=== PATIENT | male | born 2000 | race Caucasian/White ===

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

== ENCOUNTER → 2022-02-21 15:25 | Outpatient (BNVA) | payer MEDICAID, SELFPAY | PROVIDERS: PCP Nurse Practitioner Primary Care; Referring Provider Nurse Practitioner Primary Care; Visit Provider Surgery | DX: D17.23 Benign lipomatous neoplasm of skin and subcutaneous tissue of right leg (principal); N50.89 Other specified disorders of the male genital organs | CPT/HCPCS: 99202 ==

== ENCOUNTER 2022-04-27 17:34 | Emergency (ER) | payer MEDICAID, SELFPAY ==
[2022-04-27 17:57] VITALS: BP 114/76; PULSE 100; RESP 16; TEMP 36.9; O2SAT 98; BMI 22.7
--- OUTSIDE RECORDS SUMMARY | 2022-04-27 19:37 | XMS_ITS | Continuity of Care Document ---
:2000 Author Organization [address] [place] [address]- Care Team Providers Name Role Phone Rosa Huddleston DO Primary Care Physician Encounter [facility] Date(s): 03/27/22 - 04/26/[address] [place], [place] [address] Attending Physician: Lilia Clemons Admitting Physician: AdmtrLilia Referring Physician: Admtr, Ar8 Allergies, Adverse Reactions, Alerts No Known Allergies Medications acetaminophen 325 mg oral capsule 1 capsule = 325 mg, By Mouth, Every 4 hours, PRN as needed for pain, # 20 capsule, 0 Refills, Maintenance, 03/20/22 14:41:00 EST, Capsule, Partial fill upon patient request if the prescription is for aschedule II opioid drug. Start Date: 03/20/22 Status: Orderedalbuterol CFC free 90 mcg/inh inhalation aerosol 180 mcg, 2, puffs, Inhalation, Every 4 hours, PRN, Refills 0, Maintenance, 03/13/22 10:21:00 EST, Inhaler Start Date: 03/13/22 Status: Orderedbisacodyl 10 mg rectal suppository 1 supp = 10 mg, Rectally, 2 times a day, PRN Constipation, 0 Refills, Maintenance, 03/13/22 10:21:00EST, Suppository, Partial fill upon patient request if the prescription is for a schedule II opioid drug. Start Date: 03/13/22 Status: Ordereddocusate sodium 100 mg oral capsule 100 mg, 1, capsule, By Mouth, 2 times a day, PRN, # 14 capsule, Refills 0, Tot. Refills 0, Maintenance, Constipation, 03/13/22 11:52:00 EST, Route to Pharmacy Electronically, [facility], Partial fill upon patient request if the prescript... Start Date: 03/13/22 Stop Date: 03/20/22 Status: Orderedgabapentin 300 mg oral capsule 300 mg, By Mouth, 3 times a day, # 90 capsule, Refills 0, Tot. Refills 0, Maintenance, 03/13/22 13:00:00 EST, Route to Pharmacy Electronically, [facility], Partial fill upon patient request if the prescription is for a schedule II opioid... Start Date: 03/13/22 Stop Date: 04/12/22 Status: Orderedibuprofen 400 mg oral tablet 400 mg, 1, tablet, By Mouth, Every 6 hours, PRN, # 20 tablet, Refills 0, Tot. Refills 0, Maintenance, for pain, 02/01/17 18:39:24, Print Requisition Start Date: 02/01/17 Status: OrderedMelatonin Daily at bedtime, 0 Refills, Maintenance, 03/20/22 14:41:00 EST, Partial fill upon patient request if the prescription is for a schedule II opioid drug. Start Date: 03/20/22 Status: OrderedMilk of Magnesia Liquid 30 mL, By Mouth, 2 times a day, PRN Constipation, 0 Refills, Maintenance, 03/13/22 10:22:00 EST, Suspension, Partial fill upon patient request if the prescription is for a schedule II opioid drug. Start Date: 03/13/22 Status: OrderedMiraLax Powder 1 pack/packet = 17 Gm, By Mouth, Daily, 0 Refills, Maintenance, 03/13/22 10:22:00 EST, Powder, Partial fill upon patient request if the prescription is for a schedule II opioid drug. Start Date: 03/13/22 Status: OrderedSenna 8.6 mg oral tablet 8.6 mg, 1, tablet, By Mouth, Daily, Refills 0, Maintenance, 03/13/22 10:22:00 EST, Tablet, Partial fill upon patient request if the prescription is for a schedule II opioid drug. Start Date: 03/13/22 Status: Ordered Social History Social History Type Response Smoking Status Never smoker; Tobacco user i n household: No entered on: 06/30/17 Sex Patient Care team information Care Team PersonnelName: Winsome Diaz Position: [facility] RN Member Role: Primary Care Nurse Name: Natalie Clarke RN Position: S RN Member Role: Primary Care Nurse Name: Hai Romo RN Position: S RN Member Role: Primary Care Nurse Name: Milady Roger RN Position: S RN Member Role: Primary Care Nurse Name: Belen Alves Position: S RN Member Role: Primary Care Nurse Name: Rosa Huddleston DO Position: [facility] Outreach Member Role: PCP Address: Address: [address] [place] [address] Name: Leigh Ellison RN Position: [facility] RN Member Role: Primary Care Nurse Care Team Related PersonsName: ELLY SCHNEIDER Address: home [address] [place] [address]
--- OUTSIDE RECORDS SUMMARY | 2022-04-27 19:37 | XMS_ITS | Continuity of Care Document ---
:2000 Author Organization [facility] Address [address] [place] [address] Drive [address] [place] [address]- Care Team Providers Name Role Phone Rosa Huddleston DO Primary Care Physician [place] [facility] [place] - 03/27/[address] [place] [address]- Attending Physician: Clemencia Abdul NP Referring Physician: Not on Staff, Referring MD Allergies, Adverse Reactions, Alerts No Known Allergies [...] 03/13/22 11:52:00 EST, Route to Pharmacy Electronically, [facility], Partial fill upon patient request if the prescript... Start Date: 03/13/22 Stop Date: 03/20/22 Status: Orderedgabapentin 300 mg oral capsule 300 mg, By Mouth, 3 times a day, # 90 capsule, Refills 0, Tot. Refills 0, Maintenance, 03/13/22 13:00:00 EST, Route to Pharmacy Electronically, [facility], Partial fill upon patient request if [...] opioid drug. Start Date: 03/13/22 Status: Ordered Vital Signs Most recent to oldest [Reference Range]: 1 Height 165 cm (03/20/22 2:38 PM) Pulse Rate [55-90 bpm] 93 bpm *H* (03/20/22 2:38 PM) Blood Pressure [90-138/55-84 mm Hg] 126/77 mm Hg (03/20/22 2:38 PM) Temperature [96.8-100.4 DegF] 97.9 DegF (03/20/22 2:38 PM) Blood pressure sites Arm, left (03/20/22 2:38 PM) Temperature Route Temporal (03/20/22 2:38 PM) Height Percentile 5.03 % 1 (03/20/22 2:38 PM) Height ZScore -1.64 2 (03/20/22 2:38 PM) 1Result Comment: ^~:!Percentile Source -CDC/CEI7Rakrny Comment: ^~:!ZScore Source -CDC/WHO Social History Social History Type Response Smoking Status Never smoker; Tobacco user i n household: No entered on: 06/30/17 Sex Patient Care team information Care Team PersonnelName: Winsome Diaz Position: S RN Member Role: Primary Care Nurse Name: Natalie Clarke RN Position: S RN Member Role: Primary Care Nurse Name: Hai Romo RN Position: S RN Member Role: Primary Care Nurse Name: Milady Roger RN Position: S RN Member Role: Primary Care Nurse Name: Belen Alves Position: S RN Member Role: Primary Care Nurse Name: Rosa Huddleston DO Position: S Outreach Member Role: PCP Address: Address: [address] [place] [address]- Name: Leigh Ellison RN Position: S RN Member Role: Primary Care Nurse Care Team Related PersonsName: ELLY SCHNEIDER Address: home [address] [place] [address]
--- OUTSIDE RECORDS SUMMARY | 2022-04-27 19:37 | XMS_ITS | Continuity of Care Document ---
:2000 Author Organization [address] [place] [address]- Care Team Providers Name Role Phone Rosa Huddleston DO Primary Care Physician Encounter [facility] Date(s): 03/20/22 - 04/19/[address] [place], [place] [address] Attending Physician: Lilia Clemons Admitting Physician: Lilia Clemons Referring Physician: Admtr, Ar8 Allergies, Adverse Reactions, [...] 03/13/22 11:52:00 EST, Route to Pharmacy Electronically, [facility], Partial fill upon patient request if the prescript... Start Date: 03/13/22 Stop Date: 03/20/22 Status: Orderedgabapentin 300 mg oral capsule 300 mg, By Mouth, 3 times a day, # 90 capsule, Refills 0, Tot. Refills 0, Maintenance, 03/13/22 13:00:00 EST, Route to Pharmacy Electronically, [facility], Partial fill upon patient [...] Member Role: Primary Care Nurse Name: Natalie Clarek RN Position: S RN Member Role: Primary Care Nurse Name: Hai Romo RN Position: S RN Member Role: Primary Care Nurse Name: Milady Roger RN Position: S RN Member Role: Primary Care Nurse Name: Belen Alves Position: S RN Member Role: Primary Care Nurse Name: Rosa Huddleston DO Position: [facility] Outreach Member Role: PCP Address: Address: [address] [place] [address] Name: Leigh Ellison RN Position: S RN Member Role: Primary Care Nurse Care Team Related PersonsName: ELLY SCHNEIDER Address: home [address] [place] [address]
--- OUTSIDE RECORDS SUMMARY | 2022-04-27 19:38 | XMS_ITS | Continuity of Care Document ---
:2000 Author Organization [facility] Address [address] [place] [address] Drive [address] [place] [address]- Care Team Providers Name Role Phone Rosa Huddleston DO Primary Care Physician Encounter [facility] Date(s): 03/27/22 - 04/03/[address] [place] [address]- Attending Physician: Clemencia Abdul NP Allergies, Adverse Reactions, Alerts No Known Allergies [...] 03/13/22 11:52:00 EST, Route to Pharmacy Electronically, [facility], Partial fill upon patient request if the prescript... Start Date: 03/13/22 Stop Date: 03/20/22 Status: Orderedgabapentin 300 mg oral capsule 300 mg, By Mouth, 3 times a day, # 90 capsule, Refills 0, Tot. Refills 0, Maintenance, 03/13/22 13:00:00 EST, Route to Pharmacy Electronically, [facility], Partial fill upon patient [...] information Care Team PersonnelName: Winsome Diaz Position: [facility] RN Member Role: Primary Care Nurse Name: [...] S Outreach Member Role: PCP Address: Address: [address] [place] [address]- Name: Leigh Ellison RN Position: S RN Member Role: Primary Care Nurse Care Team Related PersonsName: ELLY SCHNEIDER Address: home [address] [place] [address]
--- OUTSIDE RECORDS SUMMARY | 2022-04-27 19:38 | XMS_ITS | Continuity of Care Document ---
:2000 Author Organization [facility] Address [address] [place] [address]- Care Team Providers Name Role Phone Rosa Huddleston DO Primary Care Physician Encounter [facility] Date(s): 03/13/22 - 04/12/[address] [address]- Attending Physician: Not on Staff, Attending MD Admitting Physician: Not on Staff, Admitting MD Referring Physician: Not on Staff, Referring MD [...] 03/13/22 11:52:00 EST, Route to Pharmacy Electronically, [facility], Partial fill upon patient request if the prescript... Start Date: 03/13/22 Stop Date: 03/20/22 Status: Orderedgabapentin 300 mg oral capsule 300 mg, By Mouth, 3 times a day, # 90 capsule, Refills 0, Tot. Refills 0, Maintenance, 03/13/22 13:00:00 EST, Route to Pharmacy Electronically, [facility], Partial fill upon patient [...] Member Role: Primary Care Nurse Name: Natalie Clakre RN Position: S RN Member Role: Primary Care Nurse Name: Hai Romo RN Position: S RN Member Role: Primary Care Nurse Name: Milady Roger RN Position: S RN Member Role: Primary Care Nurse Name: Belen Alves Position: S RN Member Role: Primary Care Nurse Name: Rosa Huddleston DO Position: [facility] Outreach Member Role: PCP Address: Address: [address] [place] [address]- Name: Leigh Ellison RN Position: [facility] RN Member Role: Primary Care Nurse Care Team Related PersonsName: RASHAAD RAMOSELLY SALAZAR Address: [address] [place] [address]
--- OUTSIDE RECORDS SUMMARY | 2022-04-27 19:38 | XMS_ITS | Continuity of Care Document ---
:2002 Author Organization [facility] Address [address] [place] [address]- Care Team Providers Name Role Phone Rosa Huddleston DO Primary Care Physician Encounter 03/14/22 - 04/18/22 [facility] [address] [place] [address]- Discharge Disposition: [facility] Allergies, Adverse Reactions, Alerts No Known Allergies [...] 03/13/22 11:52:00 EST, Route to Pharmacy Electronically, [facility], Partial fill upon patient request if the prescript... Start Date: 03/13/22 Stop Date: 03/20/22 Status: Orderedgabapentin 300 mg oral capsule 300 mg, By Mouth, 3 times a day, # 90 capsule, Refills 0, Tot. Refills 0, Maintenance, 03/13/22 13:00:00 EST, Route to Pharmacy Electronically, [facility], Partial fill upon patient request [...] Care Nurse Name: Natalie Clarke RN Position: [facility] RN Member Role: Primary Care Nurse Name: Hai Romo RN Position: S RN Member Role: Primary Care Nurse Name: Milady Roger RN Position: S RN Member Role: Primary Care Nurse Name: Belen Alves Position: S RN Member Role: Primary Care Nurse Name: Rosa Huddleston DO Position: S Outreach Member Role: PCP Address: Address: [address] [place] [id number]- Name: Leigh Ellison RN Position: S RN Member Role: Primary Care Nurse Care Team Related PersonsName: ELLY SCHNEIDER Address: home [address] [place] [address]
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
--- OUTSIDE RECORDS SUMMARY | 2022-04-27 19:38 | XMS_ITS | Continuity of Care Document ---
:2000 Author Organization [facility] Address [address] [place] [address] Drive [address] [place] [address]- Care Team Providers Name Role Phone Rosa Huddleston DO Primary Care Physician Encounter [facility] Date(s): 03/20/22 - 04/26/[address] [place] [address]- Attending Physician: Clemencia Abdul NP Allergies, Adverse [...] 03/13/22 11:52:00 EST, Route to Pharmacy Electronically, [facility], Partial fill upon patient request if the prescript... Start Date: 03/13/22 Stop Date: 03/20/22 Status: Orderedgabapentin 300 mg oral capsule 300 mg, By Mouth, 3 times a day, # 90 capsule, Refills 0, Tot. Refills 0, Maintenance, 03/13/22 13:00:00 EST, Route to Pharmacy Electronically, [facility], Partial fill upon [...] S Outreach Member Role: PCP Address: Address: [address] [place] [id number]- Name: Leigh Ellison RN Position: S RN Member Role: Primary Care Nurse Care Team Related PersonsName: ELLY SCHNEIDER Address: home [address] [place] [address]
--- NOTE | 2022-04-27 20:34 | ED.SKABFB ---
HPI - Skin/Abscess/Foreign Bdy General Chief complaint: Skin/Abscess/Foreign Body Stated complaint: mass right lower leg Time Seen by Provider: 04/27/22 19:36 Source: patient Mode of arrival: ambulatory Limitations: no limitations History of Present Illness HPI narrative: This is a 21-year-old male no significant medical history presenting to the emergency department with complaints of a mass behind his right knee, patient tells me it has been present for years however has been increasing in size and now there is overlying redness, swelling and warmth. He tells me it is very uncomfortable. He denies any discharge from the area. Denies numbness and tingling. To note patient is scheduled to see Dr. Rodriguez general surgery on May 08 for excision of lipoma Related Data Previous Rx's Medication Instructions Recorded cephalexin 500 mg tablet 500 mg PO Q6H 10 days #40 tabs 04/27/22 doxycycline hyclate 100 mg capsule 100 mg PO BID 10 days #20 caps 04/27/22 Allergies Allergy/AdvReac Type Severity Reaction Status Date / Time No Known Allergies Allergy Verified 02/21/22 15:30 Review of Systems Review of Systems: Constitutional : No Weight loss, No Fever, No Chills, No Fatigue, No Malaise ENT/Mouth : No sore throat, No Rhinorrhea Eyes: No Eye Pain, No Swelling, No Redness Cardiovascular : No Chest Pain, No SOB, No Dyspnea on Exertion, No Orthopnea, No Edema, No Palpitations Respiratory : No Cough, No Sputum, No Wheezing Gastrointestinal : No Nausea, No Vomiting, No Diarrhea, No Constipation, No abdominal Pain, No Hematochezia, No Melena Genitourinary : No Dysuria, No Urinary Frequency, No Hematuria, Musculoskeletal : No joint pain, No Myalgias, No Joint Swelling Skin : No Skin Lesions, No rash, + lump behind right knee Neuro : No Weakness, No Numbness, No Dizziness, No Headache Psych : No Anxiety/Panic, No Depression All other systems reviewed and are negative Yes all other systems are reviewed and are negative [facility] Past Medical History Attestation statement: The following information was validated with the patient. Source: old records reviewed and nursing notes reviewed Medical History Lipoma of right lower extremity Scrotal mass Family History Family History Father Fibromyalgia Diabetes Mother Asthma Fibromyalgia Social History Social History Alcohol intake: current Alcohol intake frequency: holidays/special occasions only Patient Tobacco Use Status: Never used Tobacco Advance Directives: No Advance Directives Information Provided: No Physical Exam Vital Signs: Vital Signs: Last Vital Signs Temp 98.4 F 04/27/22 17:57 Pulse 100 04/27/22 17:57 Resp 16 04/27/22 17:57 BP 114/76 04/27/22 17:57 Pulse Ox 98 04/27/22 17:57 O2 Del Method 04/27/22 17:57 BMI result Body Mass Index 22.7 Vital signs stable Appearance: Alert.? Oriented X3.? No acute distress.? Head: Normocephalic, atraumatic, no step-offs or deformities Eyes: Pupils equal, round and reactive to light.? CVS: Normal heart rate and rhythm.? Pulses normal.? Respiratory: No respiratory distress.? Breath sounds normal.? Abdomen: Soft and nontender.? Skin: Skin warm and dry.? Normal skin color.? Normal skin turgor.?+ Soft mass, about 3 cm, well-defined, mobile on the medial aspect, right lower leg near the popliteal area consistent with a lipoma Extremities: No lower extremity edema.? No calf ttp. 5/5 strength to bilateral upper and lower extremities Neuro: Oriented X 3.? No motor deficit.? No sensory deficit. CN 2-12 intact Course Reevaluation(s) Reevaluation #1: Will discharge patient home with doxycycline and Keflex, will have him follow-up with General surgery as scheduled for May 08. Educated patient on diagnosis and treatment plan, answered all question, patient verbalizes understanding. At this time patient will be discharged home, advised to return with new or worsening symptoms. Educated on worrisome signs and symptoms and when to return. At this time I feel comfortable discharge home. Time: 20:41 Medical Decision Making Medical Decision Making [facility] Narrative: 2038 This is a 21-year-old male presenting with mass behind right knee with overlying redness, swelling and warmth times a few days. Physical exam with Soft mass, about 3 cm, well-defined, mobile on the medial aspect, right lower leg near the popliteal area consistent with a lipoma with overlying cellulitis Physical examination most consistent with lipoma with overlying cellulitis unlikely abscess, sepsis, necrotizing infection Plan at this time is to discharge patient home Differential Diagnosis Differential Diagnoses: The differential diagnosis associated with the presentation includes Physical examination most consistent with lipoma with overlying cellulitis unlikely abscess, sepsis, necrotizing infection Admission/Observation Consideration of admission/observation: Escalation of care including admission/observation considered Not indicated Core Measures AMI core measures followed: Yes Measure exclusions: not indicated Critical Care Time Critical Care Time Critical Care Time: No Discharge Plan Discharge Clinical Impression: Lipoma of right lower extremity, Cellulitis Patient Disposition: Home, Self-Care Instructions: Cellulitis (ED), Lipoma (ED) Additional Instructions: Take your medications as prescribed. If you were prescribed antibiotics today, it is important that you take your medication to their entirety, do not skip any doses, do not finish them early. Follow-up with your primary care provider this week. Return to the emergency department with new or worsening symptoms. Such as fevers, chills, chest pain, shortness of breath, nausea, vomiting, dizziness, headache, vision changes, lethargy In case of emergency call 911 Prescriptions: New doxycycline hyclate 100 mg capsule 100 mg PO BID 10 Days Qty: 20 0RF cephalexin 500 mg tablet 500 mg PO Q6H 10 Days Qty: 40 0RF Referrals: Daly Juan, [employer] LEARNING [employer] DEVELOPMENT [Primary Care Provider] - 2 days Stand Alone Forms: Work/School Release
== END 2022-04-27 20:53 | disposition home or self-care (01) ==
PROVIDERS: Emergency Provider Internal Medicine; PCP Nurse Practitioner Primary Care
DX: D17.23 Benign lipomatous neoplasm of skin and subcutaneous tissue of right leg (principal); L03.115 Cellulitis of right lower limb; M79.661 Pain in right lower leg
CPT/HCPCS: 99283

== ENCOUNTER → 2022-04-29 13:30 | Outpatient (BNVA) | payer MEDICAID, SELFPAY | PROVIDERS: PCP Nurse Practitioner Primary Care; Visit Provider Surgery | DX: L02.415 Cutaneous abscess of right lower limb (principal) | CPT/HCPCS: 10060; 11404; 99212 ==

== ENCOUNTER → 2022-06-06 15:12 | Outpatient (BNVA) | payer MEDICAID, SELFPAY | PROVIDERS: PCP Nurse Practitioner Primary Care; Visit Provider Surgery | DX: Z13.89 Encounter for screening for other disorder (principal) ==

== ENCOUNTER 2022-12-28 20:55 | Emergency (ER) | payer MEDICAID, SELFPAY ==
[2022-12-28 20:58] VITALS: BP 120/76; PULSE 109; RESP 18; TEMP 37.1; O2SAT 98; BMI 23.5
--- NOTE | 2022-12-28 20:58 | ED_ITS ---
HPI - General Adult General Chief complaint: Upper Respiratory Symptoms Stated complaint: Fever & cough Time Seen by Provider: 12/28/22 22:17 Source: patient Mode of arrival: ambulatory Limitations: no limitations History of Present Illness HPI narrative: Patient comes to the emergency room complaining of sore throat for 2 days. Patient states that he has been coughing, dry cough. Subjective fever, had 2- COVID tests at home. Related Data Home Medications Medication Instructions Recorded Confirmed acetaminophen 500 mg tablet 1,000 mg PO Q8H PRN 04/29/22 albuterol sulfate 90 mcg/actuation 2 puff inhalation Q4H PRN wheezing 04/29/22 aerosol inhaler (Ventolin HFA) docusate sodium 100 mg capsule 100 mg PO BID PRN constipation 04/29/22 gabapentin 300 mg capsule 300 mg PO TID 04/29/22 lidocaine 5 % topical patch 1 patch topical DAILY 04/29/22 (Lidoderm) melatonin 10 mg capsule mg PO BEDTIME PRN insomnia 04/29/22 Previous Rx's Medication Instructions Recorded ibuprofen 600 mg tablet 600 mg PO TID PRN fever or pain 12/28/22 #20 tabs Allergies Allergy/AdvReac Type Severity Reaction Status Date / Time No Known Allergies Allergy Verified 06/06/22 15:20 Review of Systems Review of Systems: Constitutional : No Weight loss, No Fever, No Chills, No Night Sweats, No Fatigue, No Malaise ENT/Mouth : No Hearing loss, No Ear Pain, No Nasal Congestion, No Sinus Pain, No Hoarseness, Complaining of sore throat, No Rhinorrhea, No Swallowing Difficulty Eyes: No Eye Pain, No Swelling, No Redness, No Foreign Body, No Discharge, No Vision Changes Cardiovascular : No Chest Pain, No SOB, No Dyspnea on Exertion, No Orthopnea, No Edema, No Palpitations Respiratory : No Cough, No Sputum, No Wheezing, No Smoke Exposure, No Dyspnea Gastrointestinal : No Nausea, No Vomiting, No Diarrhea, No Constipation, No abdominal Pain, No Hematochezia, No Melena Genitourinary : no irregular bleeding, No Dysuria, No Urinary Frequency, No Hematuria, No Urinary Incontinence, No Urgency, No Flank Pain, No Urinary Flow Changes, No Hesitancy Musculoskeletal : No joint pain, No Myalgias, No Joint Swelling Skin : No Skin Lesions, No rash Neuro : No Weakness, No Numbness, No Paresthesias, No Loss of Consciousness, No Dizziness, No Headache Psych : No Anxiety/Panic, No Depression, No SI/HI/AH/VH, No Social Issues, Heme/Lymph: No Bruising, No Bleeding,No Lymphadenopathy Endocrine : No Polyuria, No Polydipsia, No Temperature Intolerance [facility] Past Medical History Medical History Abscess of leg, right Scrotal mass Lipoma of right lower extremity Family History Family History Father Fibromyalgia Diabetes Mother Asthma Fibromyalgia Social History Social History Alcohol intake: current Alcohol intake frequency: holidays/special occasions only Patient Tobacco Use Status: Never used Tobacco Smoked in Last 30 Days: No Advance Directives: No Advance Directives Information Provided: No Physical Exam ED Vital Signs: Vital Signs - 24 hr 12/28/22 20:58 12/28/22 21:46 Temperature 98.8 F Pulse Rate 109 H Respiratory Rate 18 Blood Pressure 120/76 Pulse Oximetry 98 98 Oxygen Delivery Method Room Air Room Air BMI result Body Mass Index 23.5 Const Other: Appearance: Alert. Oriented X3. No acute distress. Eyes: Pupils equal, round and reactive to light. ENT: mild erythema, no exudates, no abscesses Neck: Normal inspection. Neck supple. No lymph nodes noted. No crepitus CVS: Normal heart rate and rhythm. Pulses normal. Normal S1 and S2 Respiratory: No respiratory distress. Breath sounds normal. No Wheezing. No rales Abdomen: Soft and nontender. No rigidity. No distention. Skin: Skin warm and dry. Normal skin color. Normal skin turgor. Extremities: No lower extremity edema. No Lacerations. No Rash Neuro: Oriented X 3. No motor deficit. No sensory deficit. Moving all extremities. No slurred speech. CN 2 through 12 grossly intact Psych: calm, cooperative, normal affect Course Course Course Narrative: This is an RME: Additional HPI, ROS, PE not included below will be deferred to primary provider. This is a 67-lctc-tdf-male presenting to the emergency department with complaints of fevers, cough, sore throat and congestion x 2 days. Has had negative at home COVID tests. VSS. Plan: Viral swabs, strep test ordered. Medical Decision Making Medical Decision Making [facility] Narrative: - my interpretation of labs, patient tested negative for strep and COVID - patient given p.o. Decadron and viscous lidocaine - antibiotics initially considered , but not indicated at this time, likely viral pharyngitis Differential Diagnosis Differential Diagnoses: The differential diagnosis associated with the presentation includes ( strep throat, COVID, viral pharyngitis) Lab Data [facility] Lab Attestation statement: I reviewed the patient's lab results. Labs: Lab Results 12/28/22 Range/Units 21:31 Influenza Type A (PCR) NEGATIVE (Negative) Influenza Type B (PCR) NEGATIVE (Negative) RSV RNA Qual (PCR) NEGATIVE (Negative) SARS-CoV-2 RNA (RT-PCR) NEGATIVE (Negative) S. pyogenes GrpA EDU Negative (Negative) Discharge Plan Discharge Clinical Impression: Acute viral pharyngitis Patient Disposition: Home, Self-Care Instructions: Pharyngitis (ED) Additional Instructions: Please follow-up with your primary care physician tomorrow. If you have any worsening or new symptoms, please return to the emergency room or call 911 Prescriptions: New ibuprofen 600 mg tablet 600 mg PO TID PRN (Reason: fever or pain) Qty: 20 0RF No Action gabapentin 300 mg capsule 300 mg PO TID melatonin 10 mg capsule PO BEDTIME PRN (Reason: insomnia) lidocaine [Lidoderm] 5 % adhesive patch,medicated 1 patch topical DAILY acetaminophen 500 mg tablet 1,000 mg PO Q8H PRN docusate sodium 100 mg capsule 100 mg PO BID PRN (Reason: constipation) albuterol sulfate [Ventolin HFA] 90 mcg/actuation HFA aerosol inhaler 2 puff inhalation Q4H PRN (Reason: wheezing)
[2022-12-28 21:46] VITALS: O2SAT 98
[2022-12-28 21:52] LABS: IDNOW Serial# 08D9AD1C
[2022-12-28 21:53] LABS: Strep A Nucleic Acid Negative (Negative)
[2022-12-28 22:17] LABS: Influenza A PCR NEGATIVE (Negative); Influenza B PCR NEGATIVE (Negative); Resp Syncy Virus RNA Qual PCR NEGATIVE (Negative); SARS COV2 PCR INHOUSE NEGATIVE (Negative)
[2022-12-28] MEDS: Ibuprofen 600 MG TABLET PO (22:45)
[2022-12-28] MEDS: Lidocaine HCl Viscous 2 % 15 ML SOLUTION MUCOUS MEM (22:46)
[2022-12-28] MEDS: dexAMETHasone 4 MG TABLET PO (22:46)
== END 2022-12-28 23:07 | disposition home or self-care (01) ==
PROVIDERS: Physician Assistant Medical; Emergency Provider Emergency Medicine; PCP Nurse Practitioner Primary Care
DX: J02.9 Acute pharyngitis, unspecified (principal); R50.9 Fever, unspecified; Z20.822 Contact with and (suspected) exposure to COVID-19; Z20.828 Contact with and (suspected) exposure to other viral communicable diseases
CPT/HCPCS: 0241U; 87651; 99283; 99284; J8540

== ENCOUNTER 2023-06-06 18:56 | Emergency (ER) | payer MEDICAID, SELFPAY ==
[2023-06-06 19:14] VITALS: BP 125/78; PULSE 95; RESP 14; TEMP 36.9; O2SAT 99; BMI 21.8
--- NOTE | 2023-06-06 19:16 | ECG_ITS ---
Test Reason : DIZZINESS Blood Pressure : / mmHG Vent. Rate : 113 BPM Atrial Rate : 113 BPM P-R Int : 146 ms QRS Dur : 090 ms QT Int : 316 ms P-R-T Axes : 082 102 031 degrees QTc Int : 433 ms Sinus tachycardia Right atrial enlargement Rightward axis Abnormal ECG When compared to the previous EKG of 05 apr 2017, Right atrial enlargement Referred By: Srikanth Chung Electronically Signed By:MARIANELA SILVA
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
[2023-06-06 20:06] LABS: MANUAL DIFF FLAG NO
[2023-06-06 20:07] LABS: Basophils Percent Auto 0.2 % (0-2); Hematocrit 51.6 % (42.0-52.0); Hemoglobin 17.9 g/dl (14.0-18.0); Imm Gran Abs Auto 0.06 X10*3/uL (0.00-0.03); Imm Gran Pct Auto 0.5 % (0.0-0.4); Lymphocytes Absolute Auto 0.8 X10*3/uL (1.2-4.9); Lymphocytes Percent Auto 6.1 % (20-40); Mean Corpuscular HGB Conc 34.7 g/dl (31.0-36.0); Mean Corpuscular Hemoglobin 29.4 pg (27.0-33.0); Mean Corpuscular Volume 84.7 fL (80.0-98.0); Mean Platelet Volume 9.3 fL (9.4-12.4); Monocytes Absolute Auto 0.7 X10*3/uL (0.1-1.2); Monocytes Percent Auto 5.5 % (2-11); Neutrophils Absolute Auto 11.3 x10*3/uL (2.0-8.3); Neutrophils Percent Auto 87.7 % (45-73); Platelet Count 298 X10*3/uL (160-400); Red Blood Count 6.09 X10*6/uL (4.60-5.80); Red Cell Distribution Width 13.2 % (11.0-16.0); White Blood Count 12.9 X10*3/uL (4.8-10.8)
[2023-06-06 20:20] LABS: Alanine Aminotransferase 38 U/L (0-40); Albumin Level 5.1 g/dL (3.5-5.0); Alkaline Phosphatase 107 U/L (39-117); Anion Gap 15 (12-20); Aspartate Amino Transferase 20 U/L (5-37); Bilirubin Total 0.8 mg/dL (0.0-1.0); Blood Urea Nitrogen 13 mg/dL (9-16); Calcium 10.6 mg/dL (8.4-10.2); Carbon Dioxide 24 mmol/L (22-29); Chloride 104 mmol/L (96-108); Creatinine Clr Calc Pharmacy 117.3; Estimated Glomerular Filt Rate > 60; Glucose Random 101 mg/dL (60-115); Lipase 15 U/L (8-78); Potassium 3.8 mmol/L (3.3-5.1); Sodium 139 mmol/L (135-145); Total Protein 8.6 g/dL (6.5-8.0)
[2023-06-06 20:43] LABS: Influenza A PCR NEGATIVE (Negative); Influenza B PCR NEGATIVE (Negative); Resp Syncy Virus RNA Qual PCR NEGATIVE (Negative); SARS COV2 PCR INHOUSE NEGATIVE (Negative)
[2023-06-06 23:36] VITALS: BP 121/72; PULSE 97; RESP 18; TEMP 36.7; O2SAT 100
[2023-06-06] MEDS: 0.9 % Sodium Chloride 1,000 ML 999 ML IV (23:52)
[2023-06-06] MEDS: ondansetron HCL 4 MG/2 ML VIAL IVPUSH (23:53)
[2023-06-06] MEDS: Ketorolac Tromethamine 30 MG/ML VIAL IVPUSH (23:53)
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
[2023-06-07 01:36] VITALS: BP 122/70; PULSE 107; RESP 20; O2SAT 99
[2023-06-07 04:06] VITALS: BP 119/66; PULSE 78; RESP 20; O2SAT 96
[2023-06-07] MEDS: Magnesium Hydrox/Alum Hydrox 30 ML ORAL.SUSP PO (04:16)
--- NOTE | 2023-06-07 04:19 | PC.NURSE ---
pt reporting burning sensation in upper abdomen, pt medicated per jun.
== END 2023-06-07 04:20 | disposition home or self-care (01) ==
PROVIDERS: Physician Assistant; Emergency Provider Internal Medicine; PCP Nurse Practitioner Primary Care
DX: G43.909 Migraine, unspecified, not intractable, without status migrainosus (principal); R11.2 Nausea with vomiting, unspecified; Z87.820 Personal history of traumatic brain injury; Z11.52 Encounter for screening for COVID-19; Z20.828 Contact with and (suspected) exposure to other viral communicable diseases
CPT/HCPCS: 0241U; 80053; 83690; 85025; 93005; 96361; 96374; 96375; 99284; 99285; J1885; J2405

== ENCOUNTER → 2023-06-06 19:16 | Outpatient (BNV) | payer MEDICAID, SELFPAY | PROVIDERS: Emergency Provider Internal Medicine; PCP Nurse Practitioner Primary Care; Visit Provider Internal Medicine | DX: R00.0 Tachycardia, unspecified (principal); R94.31 Abnormal electrocardiogram [ECG] [EKG] | CPT/HCPCS: 93010 ==

== ENCOUNTER 2023-12-25 20:50 | Emergency (ER) | payer MEDICAID, SELFPAY ==
[2023-12-25 20:55] VITALS: BP 121/72; BP 128/72; PULSE 108; PULSE 117; RESP 20; TEMP 36.8; O2SAT 97; O2SAT 98; BMI 19.5
[2023-12-25 20:56] VITALS: BP 121/72; PULSE 112; RESP 18; TEMP 36.8; O2SAT 97
--- NOTE | 2023-12-25 21:23 | PC.NURSE ---
pt biba from home, a&ox4,respirations even and unlabored. pt reporting onset of a PTSD episode starting this morning causing increased anxiety x12 hours. pt rpeorts he has hx of ptsd but it has never got this bad.pt reports he has been having trouble sleeping, but when he sleeps he has nightmares and believes these are his triggers. pt denies si/hi. denies chest pain, sob, n/v/d.
--- NOTE | 2023-12-26 00:35 | ED.ANXIETY ---
HPI - Anxiety General Chief Complaint: Anxiety Stated Complaint: PTSD episode, 01/14 head pain hx tbi Time Seen by Provider: 12/25/23 23:12 Source: patient Mode of arrival: ambulatory Limitations: no limitations History of Present Illness ED Provider: eugenia PALAFOX narrative: Patient with history of PTSD , TBI and anxiety comes here for increased anxiety earlier today on lorazepam 1 mg twice daily feeling much better at this time no SI or HI Related Data Home Medications ?Medication ?Instructions ?Recorded ?Confirmed acetaminophen 500 mg tablet 1,000 mg PO Q8H PRN 04/29/22 albuterol sulfate 90 mcg/actuation 2 puff inhalation Q4H PRN wheezing 04/29/22 aerosol inhaler (Ventolin HFA) docusate sodium 100 mg capsule 100 mg PO BID PRN constipation 04/29/22 gabapentin 300 mg capsule 300 mg PO TID 04/29/22 lidocaine 5 % topical patch 1 patch topical DAILY 04/29/22 (Lidoderm) melatonin 10 mg capsule mg PO BEDTIME PRN insomnia 04/29/22 Previous Rx's ?Medication ?Instructions ?Recorded ibuprofen 600 mg tablet 600 mg PO TID PRN fever or pain 12/28/22 #20 tabs unoujmhxhb-vardbyiwzynbf-uxrefwpn 1 tab PO Q6H PRN haeadace #20 tabs 06/07/23 50 mg-325 mg-40 mg tablet Allergies Allergy/AdvReac Type Severity Reaction Status Date / Time No Known Allergies Allergy Verified 12/25/23 20:57 Review of Systems Review of Systems: Yes all other systems are reviewed and are negative PMFSH Past Medical History Medical History Abscess of leg, right Scrotal mass Lipoma of right lower extremity Family History Family History Father Fibromyalgia Diabetes Mother Asthma Fibromyalgia Social History Social History Alcohol intake: never Patient Tobacco Use Status: Never used Tobacco Smoked in Last 30 Days: No Use of substances other than those prescribed or required for medical reasons: No Substance Use Type: Marijuana Advance Directives: Yes Advance Directives Information Provided: No Advance Directives on File: No Do you have a plan to hurt others: No Plan Physical Exam Vital Signs: Vital Signs: Last Vital Signs Temp 98.3 F 12/25/23 20:56 Pulse 112 H 12/25/23 20:56 Resp 18 12/25/23 20:56 BP 121/72 12/25/23 20:56 Pulse Ox 97 12/25/23 20:56 O2 Del Method Room Air 12/25/23 20:56 BMI result Body Mass Index 19.5 Appearance: Alert. Oriented X3. No acute distress. Eyes: PERRLA, No Nystagmus ENT: Pharynx normal. Oral Mucosa moist Neck: Normal inspection. Neck supple. CVS: Normal heart rate and rhythm. Pulses normal. Respiratory: No respiratory distress. Equal air entry bilateral, no wheezing/rales/rhonchi Abdomen: Soft and nontender. Bowel sounds are present, no mass palpable, no CVA tenderness Skin: Skin warm and dry. Normal skin color. Normal skin turgor. Extremities: No lower extremity edema. No calf tenderness Neuro: Oriented X 3. No motor deficit. No sensory deficit.No cerebellar signs , cranial nerves II-XII intact Medical Decision Making Medical Decision Making MDM Narrative: Patient's anxiety/PTSD/TBI on lorazepam calm and sober at advised to continue his medication Discharge Plan Discharge Clinical Impression: Acute anxiety Patient Disposition: Home, Self-Care Instructions: Anxiety (ED) Additional Instructions: Take your lorazepam twice daily as prescribed by the psychiatrist and follow up with them Prescriptions: No Action ibuprofen 600 mg tablet 600 mg PO TID PRN (Reason: fever or pain) Qty: 20 0RF omgvydzxka-owuikxhahbnwo-gxdp 50-325-40 mg tablet 1 tab PO Q6H PRN (Reason: haeadace) Qty: 20 0RF gabapentin 300 mg capsule 300 mg PO TID melatonin 10 mg capsule PO BEDTIME PRN (Reason: insomnia) lidocaine [Lidoderm] 5 % adhesive patch,medicated 1 patch topical DAILY acetaminophen 500 mg tablet 1,000 mg PO Q8H PRN docusate sodium 100 mg capsule 100 mg PO BID PRN (Reason: constipation) albuterol sulfate [Ventolin HFA] 90 mcg/actuation HFA aerosol inhaler 2 puff inhalation Q4H PRN (Reason: wheezing) Print Language: Mozamb[place]
[2023-12-26 00:49] VITALS: BP 94/54; PULSE 99; RESP 14; TEMP 36.7; O2SAT 98
[2023-12-26 00:50] VITALS: BP 94/54; PULSE 99; RESP 14; TEMP 36.7; O2SAT 98
== END 2023-12-26 00:51 | disposition home or self-care (01) ==
PROVIDERS: Emergency Provider Internal Medicine; PCP Nurse Practitioner Primary Care
DX: F41.9 Anxiety disorder, unspecified (principal); Z79.899 Other long term (current) drug therapy
CPT/HCPCS: 99283; 99284

== ENCOUNTER 2024-01-15 14:24 | Outpatient (REF) | payer MEDICAID, SELFPAY ==
[2024-01-15 18:26] LABS: CT PCR NOT DETECTED (Not Detect.); NG PCR NOT DETECTED (Not Detect.)
[2024-01-16 08:32] LABS: HIV AB/AG Nonreactive (Nonreactive); HIV Num 1 0.05 S/CO (0.00-0.99)
[2024-01-19 10:59] LABS: RPR Rapid Plasma Reagin NON-REACTIVE (NON-REACTIVE)
== END 2024-01-15 14:25 | disposition home or self-care (01) ==
LOC: HO.HHCL 14:24
PROVIDERS: Visit Provider Nurse Practitioner Primary Care
DX: Z11.3 Encounter for screening for infections with a predominantly sexual mode of transmission (principal)
CPT/HCPCS: 36415; 86592; 87389; 87491; 87591

== ENCOUNTER 2024-01-26 23:18 | Emergency (ER) | payer MEDICAID, SELFPAY ==
[2024-01-26 23:29] VITALS: BP 107/53; PULSE 75; RESP 18; TEMP 36.8; O2SAT 99
[2024-01-26 23:34] VITALS: BP 127/82; PULSE 88; O2SAT 100; BMI 29.0
[2024-01-26 23:53] LABS: Basophils Percent Auto 0.4 % (0-2); Hematocrit 49.2 % (42.0-52.0); Hemoglobin 17.3 g/dl (14.0-18.0); Imm Gran Abs Auto 0.02 X10*3/uL (0.00-0.03); Imm Gran Pct Auto 0.2 % (0.0-0.4); Lymphocytes Percent Auto 10.9 % (20-40); MANUAL DIFF FLAG NO; Mean Corpuscular HGB Conc 35.2 g/dl (31.0-36.0); Mean Corpuscular Hemoglobin 29.4 pg (27.0-33.0); Mean Corpuscular Volume 83.7 fL (80.0-98.0); Mean Platelet Volume 9.2 fL (9.4-12.4); Monocytes Absolute Auto 0.9 X10*3/uL (0.1-1.2); Monocytes Percent Auto 9.3 % (2-11); Neutrophils Absolute Auto 7.4 x10*3/uL (2.0-8.3); Neutrophils Percent Auto 79.2 % (45-73); Platelet Count 242 X10*3/uL (160-400); Red Blood Count 5.88 X10*6/uL (4.60-5.80); Red Cell Distribution Width 13.2 % (11.0-16.0); White Blood Count 9.4 X10*3/uL (4.8-10.8)
[2024-01-27 00:09] LABS: Albumin Level 4.7 g/dL (3.5-5.0); Alkaline Phosphatase 106 U/L (39-117); Anion Gap 14 (12-20); Aspartate Amino Transferase 30 U/L (5-37); Bilirubin Total 0.6 mg/dL (0.0-1.0); Blood Urea Nitrogen 10 mg/dL (9-16); Carbon Dioxide 20 mmol/L (22-29); Chloride 112 mmol/L (96-108); Creatinine Clr Calc Pharmacy 139.1; Estimated Glomerular Filt Rate > 60; Glucose Random 89 mg/dL (60-115); Lipase 13 U/L (8-78); Potassium 3.5 mmol/L (3.3-5.1); Sodium 142 mmol/L (135-145); Total Protein 7.7 g/dL (6.5-8.0)
[2024-01-27 00:23] LABS: Alanine Aminotransferase 55 U/L (0-40)
[2024-01-27 01:47] VITALS: BP 102/50; PULSE 68; RESP 14; TEMP 36.8; O2SAT 98
[2024-01-27] MEDS: ondansetron HCL 4 MG/2 ML VIAL IVPUSH (02:01)
[2024-01-27] MEDS: 0.9 % Sodium Chloride 1,000 ML 999 ML IV (04:29)
[2024-01-27] MEDS: LORazepam 2 MG/ML VIAL 1 MG IVPUSH (04:29)
[2024-01-27] MEDS: Famotidine/PF 20 MG/2 ML VIAL IVPUSH (04:30)
[2024-01-27 05:03] VITALS: BP 99/60; PULSE 87; RESP 17; TEMP 37.4; O2SAT 97
[2024-01-27 06:23] VITALS: BP 99/60; PULSE 83; RESP 14
--- NOTE | 2024-01-27 06:56 | ED.NAVMDI ---
HPI - Nausea/Vomiting/Diarrhea General Chief complaint: Nausea/Vomiting/Diarrhea Stated complaint: GI BLEED Time Seen by Provider: 01/27/24 04:18 Source: patient Mode of arrival: ambulatory Limitations: no limitations History of Present Illness ED Provider: eugenia PALAFOX Narrative: Patient's with history of anxiety comes here for nausea vomiting for last 24 hours with multiple episodes of vomiting followed by dark color vomitus no history of ulcer no melena Related Data Home Medications ?Medication ?Instructions ?Recorded ?Confirmed acetaminophen 500 mg tablet 1,000 mg PO Q8H PRN 04/29/22 albuterol sulfate 90 mcg/actuation 2 puff inhalation Q4H PRN wheezing 04/29/22 aerosol inhaler (Ventolin HFA) docusate sodium 100 mg capsule 100 mg PO BID PRN constipation 04/29/22 gabapentin 300 mg capsule 300 mg PO TID 04/29/22 lidocaine 5 % topical patch 1 patch topical DAILY 04/29/22 (Lidoderm) melatonin 10 mg capsule mg PO BEDTIME PRN insomnia 04/29/22 Previous Rx's ?Medication ?Instructions ?Recorded ibuprofen 600 mg tablet 600 mg PO TID PRN fever or pain 12/28/22 #20 tabs tzjceqqxdh-puqifmpukndol-kwopdlzn 1 tab PO Q6H PRN haeadace #20 tabs 06/07/23 50 mg-325 mg-40 mg tablet omeprazole 40 mg capsule,delayed 40 mg PO DAILY #30 caps 01/27/24 release ondansetron 4 mg disintegrating 4 mg PO Q6-8H PRN nausea and 01/27/24 tablet vomiting #10 tabs Allergies Allergy/AdvReac Type Severity Reaction Status Date / Time No Known Allergies Allergy Verified 01/26/24 23:38 Review of Systems Review of Systems: Yes all other systems are reviewed and are negative PMFSH Past Medical History Medical History Abscess of leg, right Scrotal mass Lipoma of right lower extremity Family History Family History Father Fibromyalgia Diabetes Mother Asthma Fibromyalgia Social History Social History Alcohol intake: never Patient Tobacco Use Status: Never used Tobacco Smoked in Last 30 Days: No Use of substances other than those prescribed or required for medical reasons: No Substance Use Type: Marijuana Substance Use Frequency: Chronic Longstanding Advance Directives: No Advance Directives Information Provided: No Do you have a plan to hurt others: No Plan Physical Exam Vital Signs: Vital Signs: Last Vital Signs Temp 99.3 F 01/27/24 05:03 Pulse 83 01/27/24 06:23 Resp 14 01/27/24 06:23 BP 99/60 01/27/24 06:23 Pulse Ox 97 01/27/24 05:03 O2 Del Method Room Air 01/27/24 05:03 BMI result Body Mass Index 29.0 Appearance: Alert. Oriented X3. No acute distress. Eyes: PERRLA, No Nystagmus ENT: Pharynx normal. Oral Mucosa moist Neck: Normal inspection. Neck supple. CVS: Normal heart rate and rhythm. Pulses normal. Respiratory: No respiratory distress. Equal air entry bilateral, no wheezing/rales/rhonchi Abdomen: Soft and mild epigastric tenderness Bowel sounds are present, no mass palpable, no CVA tenderness Skin: Skin warm and dry. Normal skin color. Normal skin turgor. Extremities: No lower extremity edema. No calf tenderness Neuro: Oriented X 3. No motor deficit. No sensory deficit.No cerebellar signs , cranial nerves II-XII intact Medications Administered Discontinued Medications Generic Name Dose Route Start Last Admin Trade Name Freq PRN Reason Stop Dose Admin Famotidine 20 mg 01/27/24 04:20 01/27/24 04:30 Famotidine/Pf 20 Mg/2 Ml Vial IVPUSH 01/27/24 04:21 20 mg ONCE ONE Administration Sodium Chloride 1,000 mls @ 999 mls/hr 01/27/24 04:20 01/27/24 04:29 Ns IV 01/27/24 05:20 999 mls/hr .Q1H1M ONE Administration Lorazepam 1 mg 01/27/24 04:20 01/27/24 04:29 Lorazepam 2 Mg/Ml Vial IVPUSH 01/27/24 04:21 1 mg ONCE ONE Administration Ondansetron HCl 4 mg 01/27/24 01:55 01/27/24 02:01 Ondansetron Hcl 4 Mg/2 Ml Vial IVPUSH 01/27/24 01:56 4 mg ONCE ONE Administration Medical Decision Making Medical Decision Making [facility] Narrative: Patient has acute gastritis/anxiety improved after Ativan and Pepcid, H&H stable no active vomiting in the ER will discharge patient home Differential Diagnosis Differential Diagnoses: The differential diagnosis associated with the presentation includes Anxiety/gastritis Lab Data [facility] Lab Attestation statement: I reviewed the patient's lab results. 01/26/24 23:49 01/26/24 23:49 Labs: Lab Results 01/26/24 Range/Units 23:49 WBC 9.4 (4.8-10.8) X10*3/uL RBC 5.88 H (4.60-5.80) X10*6/uL Hgb 17.3 (14.0-18.0) g/dl Hct 49.2 (42.0-52.0) % MCV 83.7 (80.0-98.0) fL MCH 29.4 (27.0-33.0) pg MCHC 35.2 (31.0-36.0) g/dl RDW 13.2 (11.0-16.0) % Plt Count 242 (160-400) X10*3/uL MPV 9.2 L (9.4-12.4) fL Immature Gran % (Auto) 0.2 (0.0-0.4) % Neut % (Auto) 79.2 H (45-73) % Lymph % (Auto) 10.9 L (20-40) % Tw[place]gs % (Auto) 9.3 (2-11) % Eos % (Auto) 0.0 (0-4) % Baso % (Auto) 0.4 (0-2) % Lymph # (Auto) 1.0 L (1.2-4.9) X10*3/uL [place] # (Auto) 0.9 (0.1-1.2) X10*3/uL Eos # (Auto) 0.0 (0.0-0.4) X10*3/uL Baso # (Auto) 0.0 (0.0-0.2) X10*3/uL Abs Immat Gran (auto) 0.02 (0.00-0.03) X10*3/uL Absolute Neuts (auto) 7.4 (2.0-8.3) x10*3/uL Absolute Nucleated RBC 0.000 (0.0-0.012) X10*3/uL Nucleated RBC % (auto) 0.0 (0.0-0.2) /100WBC Sodium 142 (135-145) mmol/L Potassium 3.5 (3.3-5.1) mmol/L Chloride 112 H (96-108) mmol/L Carbon Dioxide 20 L (22-29) mmol/L Anion Gap 14 (12-20) BUN 10 (9-16) mg/dL Creatinine 0.87 (0.5-1.4) mg/dL Estim Creat Clear Calc 139.1 Estimated GFR > 60 Random Glucose 89 (60-115) mg/dL Calcium 10.0 (8.4-10.2) mg/dL Total Bilirubin 0.6 (0.0-1.0) mg/dL AST 30 (5-37) U/L ALT 55 H (0-40) U/L Alkaline Phosphatase 106 (39-117) U/L Total Protein 7.7 (6.5-8.0) g/dL Albumin 4.7 (3.5-5.0) g/dL Lipase 13 (8-78) U/L Discharge Plan Discharge Clinical Impression: Acute gastritis Patient Disposition: Home, Self-Care Instructions: Gastritis (ED) Additional Instructions: Drink plenty of fluids Take medication for nausea and anxiety Prescriptions: New ondansetron 4 mg tablet,disintegrating 4 mg PO Q6-8H PRN (Reason: nausea and vomiting) Qty: 10 0RF omeprazole 40 mg capsule,delayed release(DR/EC) 40 mg PO DAILY Qty: 30 0RF No Action ibuprofen 600 mg tablet 600 mg PO TID PRN (Reason: fever or pain) Qty: 20 0RF ayefqvrajv-bxkvwyfzuobwp-jeqg 50-325-40 mg tablet 1 tab PO Q6H PRN (Reason: haeadace) Qty: 20 0RF gabapentin 300 mg capsule 300 mg PO TID melatonin 10 mg capsule PO BEDTIME PRN (Reason: insomnia) lidocaine [Lidoderm] 5 % adhesive patch,medicated 1 patch topical DAILY acetaminophen 500 mg tablet 1,000 mg PO Q8H PRN docusate sodium 100 mg capsule 100 mg PO BID PRN (Reason: constipation) albuterol sulfate [Ventolin HFA] 90 mcg/actuation HFA aerosol inhaler 2 puff inhalation Q4H PRN (Reason: wheezing) Print Language: Sammarinese
[2024-01-27 07:19] VITALS: BP 99/60; PULSE 83; RESP 14; TEMP 37.4; O2SAT 97
== END 2024-01-27 07:19 | disposition home or self-care (01) ==
PROVIDERS: Emergency Provider Internal Medicine; PCP Nurse Practitioner Primary Care
DX: K29.70 Gastritis, unspecified, without bleeding (principal); R11.2 Nausea with vomiting, unspecified
CPT/HCPCS: 36415; 80053; 83690; 85025; 96361; 96374; 96375; 99284; J2060; J2405

== ENCOUNTER 2024-03-06 19:03 | Outpatient (REF) | payer MEDICAID, SELFPAY ==
--- NOTE | ~2024-03-06 | MR_ITS ---
EXAMINATION: MR BRAIN WITHOUT CONTRAST CLINICAL INFORMATION: History of traumatic brain injury. New onset headaches. COMPARISON: CT head from 10/28/2018. TECHNIQUE: MRI of the brain was obtained using routine sequences without contrast. FINDINGS: No focal restricted diffusion is demonstrated to suggest acute or subacute cerebral ischemia. No evidence of acute hemorrhagic products on heme-sensitive imaging. Chronic regions of encephalomalacia of the anterior-inferior aspects of the bilateral frontal lobes, the lateral aspect of the right frontal lobe, and anterior aspect of the right temporal lobe with chronic hemosiderin staining. Small foci of susceptibility artifact within the left temporal lobe, right cerebellar hemisphere, and midbrain consistent with petechial microhemorrhage. Few nonspecific scattered small foci of T2 FLAIR hyperintensities in the bilateral frontoparietal lobes. The ventricles are normal in morphology and size. No abnormal mass effect. No midline shift. Normal appearance of the pituitary gland. Normal positioning of the cerebellar tonsils. Normal arterial and venous vascular flow voids are present. Normal, homogeneous marrow signal. Mild mucosal thickening of the paranasal sinuses. Mild rightward nasal septal deviation. No signal abnormalities within the mastoids. MR/MR head/brain wo con IMPRESSION: 1. No acute intracranial abnormalities. 2. Chronic regions of encephalomalacia of the bilateral frontal and right temporal lobes. 3. Mild nonspecific white matter changes. Electronically signed by: J Carlos Patel DO 03/07/2024 11:25 PM EST
== END 2024-03-06 19:04 | disposition home or self-care (01) ==
LOC: HO.MRI 19:03
PROVIDERS: PCP Nurse Practitioner Primary Care; Visit Provider Nurse Practitioner Primary Care
DX: R51.9 Headache, unspecified (principal); S06.9X9S Unspecified intracranial injury with loss of consciousness of unspecified duration, sequela
CPT/HCPCS: 70551

== ENCOUNTER → 2024-06-21 13:59 | Outpatient (REF) | payer MEDICAID, SELFPAY ==
--- NOTE | 2024-06-21 14:04 | CA_ITS ---
Transthoracic Echocardiogram Patient (Last, First, Middle): Diony Fong, Gender: Male Date of : 2000 Age: 23 Procedure Date: 06/21/2024 Procedure Type: Transthoracic Echocardiogram Location: OP Height: 167.64 cm Weight: 79.83 kg BSA: 1.89 m2 Heart Rate: 77 bpm BP: 110 / 65 mmHg Business Development Officer: MAIA Referring MD: Daly Juan NP Symptoms: R42 DIZZINESS Study Quality: Adequate ECG Rhythm: Sinus Conclusions: - The left ventricular systolic function is normal. The calculated ejection fraction is 64% by biplane method. - No obvious valvular pathology seen on this study. Findings Left Ventricle Normal left ventricular cavity size. There is normal left ventricular wall thickness. The left ventricular systolic function is normal. The calculated ejection fraction is 64% by biplane method. There is no evidence of regional wall motion abnormalities. Diastolic function is normal for age. Right Ventricle Normal right ventricular cavity size and systolic function. Atria Both atria are normal in size. Aortic Valve There is a normal trileaflet aortic valve. There is no aortic valve stenosis. There is no aortic valve regurgitation. Mitral Valve The mitral valve appears normal. There is no mitral valve regurgitation. There is no mitral valve stenosis. Pulmonic Valve The pulmonic valve is likely normal. Tricuspid Valve Normal tricuspid valve structure. There is trace tricuspid valve regurgitation. There is no evidence of pulmonary hypertension. Great Vessels The asc aorta is normal in size. Venous The inferior vena cava is normal in size and collapses greater than 50% with inspiration. Pericardium/Pleural There is no evidence of pericardial effusion. Prior Study Comparison No prior study available for comparison. Recommendations, Care & Conclusions No obvious valvular pathology seen on this study. Measurements 2D Linear Measurements IVSd: 0.58 0.6-0.9/0.6-1.0 cm LVIDd: 4.97 3.9-5.3/4.2-5.9 cm LVIDd Index: 2.63 2.4-3.2/2.2-3.1 cm/m2 LVIDs: 2.69 2.0-3.6 cm LVPWd: 0.71 0.7-1.1 cm LA Diam: 2.60 2.7-3.8/3.0-4.0 cm LAIDs Index: 1.38 1.5-2.3 cm/m2 LV Mass: 127.21 67-162/88-224 g LV Mass Index: 67.31 43-95/49-115 g/m2 LVOT Diam: 2.00 3.0+(-)1.3 cm 2D Systolic Function EF 4C: 63.70 >55% EF 2C: 63.80 >55% EF BiP: 63.50 >55% Mitral Valve MV Pk E: 0.72 MV PK A: 0.58 MV Decel Time: 161.00 E/A: 1.20 E'Lateral: 16.30 E'Medial: 12.40 E/E' Med: 5.80 E/E' Lat: 4.40 PHT: 47.00 MVA PHT: 4.68 Decel [place]: 4.44 Aortic Valve AoV Pk [place]: 1.47 AoV Mn [place]: 0.93 AoV VTI: 0.26 AoV Pk Grad: 9.00 Aov Mn Grad: 4.00 TJ Cont.VTI: 2.82 LVOT LVOT Pk [place]: 1.25 LVOT Mn [place]: 0.83 LVOT VTI: 0.23 LVOT Pk Grad: 6.00 LVOT Mn Grad: 3.00 LVOT Diam: 2.00 LVOT Area: 3.14 Diastolic Function MV Pk E: 0.72 MV Pk A: 0.58 E/A: 1.20 E'Medial: 12.40 E/E' Med: 5.80 E' Laterial: 16.30 E/E' Lat: 4.40 Right Ventricle TAPSE (mm): 21.30 TVS' [place]: 13.30 Tricuspid Valve TR Pk [place]: 1.58 TR Pk Grad: 10.00 RA Press: 3.00 RVSP: 13.00 Great Vessels Aorta Sinus of Valsalva: 2.60 2.0-3.5 cm Ao Asc: 2.40 2.1-3.4 cm Pulmonary Valve PV Pk [place]: 0.92 Peak PV Grad: 3.00 Updated in Other Vendor System with Status of Final Varun Torres MD electronically signed on 06/21/2024 3:41:53 PM with status of Final
--- OUTSIDE RECORDS SUMMARY | 2024-06-21 16:27 | XMS_ITS | Encounter Summary ---
Author Organization [employer] Address [address] [place] [address] [address] [place] [address] Care Team Providers Care Button Tacker Name Role Phone Daly Juan Primary Care Provider [phone] Reason for Visit * Reason Onset Date Comments status 04/10/2022 Encounter Details Date Type Department Care Team ([facility] st Contact Info) Description 04/10/2022 Telephone [facility] MEDICINE [address] [place], [place] [id number] Daly Juan ANP [address] [place] [address] status Social History Tobacco Use Types Packs/Day Years Used Date Smoking Tobacco: Never Passive Smoke Exposure: Never Smokeless Tobacco: Never Alcohol Use Standard Drinks/Week Comments Yes 0 (1 standard drink = 0.6 oz pur e alcohol) Sex and Gender Information Value Date Recorded Sex Assigned at Male 02/04/2022 10:20 AM EDT Legal Sex Male 10:20 AM EDT Gender Identity Male 02/04/2022 10:20 AM EDT Sexual Orientation Straight 02/04/2022 10 :20 AM EDT COVID-19 Exposure Response Date Recorded In the last 10 days, have yo u been in contact with someone who was confirmed or suspected to have Coronavirus/COVID-19? No / Unsure 03/29/2022 10:04 AM EST documented as of this encounter Miscellaneous Notes * Telephone Encounter - Oswaldo Albrechtos - 04/10/2022 11:09 AM EST Tc from mom requesting status on wheelchair and shower chair also toilet chair Please contact mom at [phone] documented in this encounter Plan of Treatment Upcoming Encounters Date Type Department Care Team ([facility] st Contact Info) Description 07/15/2024 1:00 PM EDT Office Visit [facility] OPTOMETRY [address] [place] [address] [place], OD [address] [place] [address] 09/07/2024 1:00 PM EDT Office Visit [facility] MEDICINE [address] [place] [address] Daly Juan ANP [address] [place] [address] documented as of this encounter Visit Diagnoses Not on filedocumented in this encounter Care Teams Button Tacker Relationship Specialty Start Date End Date Daly Juan ANP [address] [place] [id number] PCP - General Family Medicine 02/09/20 documented as of this encounter
--- OUTSIDE RECORDS SUMMARY | 2024-06-21 16:27 | XMS_ITS | Encounter Summary ---
Author Organization [employer] Address [address] [place] [address] Care Team Providers Care Maintenance Machinist Name Role Phone Daly Juan ROBBY Primary Care Provider [phone] Encounter Details Date Type Department Care Team (Latest Contact Info) Description 06/04/2024 Travel Social History Tobacco Use Types Packs/Day Years Used Date Smoking Tobacco: Never Passive Smoke Exposure: Never Smokeless Tobacco: Never Alcohol Use Standard Drinks/Week Comments Yes 0 (1 standard drink = 0.6 oz pur e alcohol) Depression Answer Date Recorded Patient Health Questionnaire-9 Score 14 06/04/2024 Patient Health Questionnaire-9 Score 14 06/04/2024 Last PHQ-9: Questionnaire Data Not on file 0 06/04/2024 Housing Stability Answer Date Recorded What is your housing situation today? I have steven akers 01/05/[address] you li ve. Do you have problems with any of the following? None of the above 01/05/2024 Food Insecurity Answer Date Recorded Within the past 12 months, y ou worried that your food would run out before you got money to buy more: Sometimes True 2023 Within the past 12 months,th e food you bought just didn't last and you didn't have enough money to get more: Sometimes True 01/05/2024 Transportation Answer Date Recorded In the past 12 months, has l ack of transportation kept you from medical appts, meetings, work or from getting things needed for daily living? No 01/05/2024 Utilities Answer Date Recorded In the past 12 months, has t he electric, gas, oil or water company threatened to shut off services in your home? No 01/05/2024 Depression Answer Date Recorded Patient Health Questionnaire-2 Score 2 06/04/2024 Internet Access Answer Date Recorded Internet Access Q1 Yes 01/05/2024 Internet Access Q2 Not on file 01/05/2024 Sex and Gender Information Value Date Recorded Sex Assigned at Male 02/04/2022 10:20 AM EDT Legal Sex Male 10:20 AM EDT Gender Identity Male 02/04/2022 10:20 AM EDT Sexual Orientation Straight 02/04/2022 10 :20 AM EDT documented as of this encounter Plan of Treatment Upcoming Encounters Date Type Department Care Team (Late st Contact Info) Description 07/15/2024 1:00 PM EDT Office Visit [facility] OPTOMETRY [address] [place] [address] [place], LEONOR [address] [place] [address] 09/07/2024 1:00 PM EDT Office Visit [facility] MEDICINE [address] [place] [address] Daly Juan ANP [address] [place] [address] documented as of this encounter Visit Diagnoses Not on filedocumented in this encounter Additional Health Concerns Assessment Noted Time PHQ-9 Depression Total Score: 14 025 1:41 PM EST documented as of this encounter Care Teams Maintenance Machinist Relationship Specialty Start Date End Date Daly Juan ANP [address] [place] [address] PCP - General Family Medicine 02/09/20 documented as of this encounter
--- OUTSIDE RECORDS SUMMARY | 2024-06-21 16:27 | XMS_ITS | Encounter Summary ---
Author Organization [employer] Address [address] [place] [address] [address] [place] [address] Care Team Providers Care Security Rep Name Role Phone aDly Juan Primary Care Provider [phone] Reason for Visit * Reason Onset Date Comments Med Refill 04/10/2022 Encounter Details Date Type Department Care Team (Late st Contact Info) Description 04/10/2022 Refill [facility] MEDICINE [address] [place] [address] Daly Juan ANP [address] [place] [address] Other constipation; Sleeping difficulty Social History Tobacco Use Types Packs/Day Years [...] Miscellaneous Notes * Telephone Encounter - Oswaldo Clinton - 04/10/2022 11:07 AM EST Tc from pt requesting med refill ( Melatonin 10 mg ) ( docusate 100 mg capsule ) documented in this encounter Plan of Treatment Upcoming Encounters Date Type Department Care Team (Late st Contact Info) Description 07/15/2024 1:00 PM EDT Office Visit [facility] OPTOMETRY [address] [place] [address] [place], OD [address] [place] [address] 09/07/2024 1:00 PM EDT Office Visit [facility] MEDICINE [address] [place] [address] Daly Juan ANP [address] [place] [address] documented as of this encounter Visit Diagnoses Diagnosis Other constipation Sleeping difficulty Unspecified sleep disturbance documented in this encounter Care Teams Security Rep Relationship Specialty Start Date End Date Daly Juan ANP [address] [place] [id number] PCP - General Family Medicine 02/09/20 documented as of this encounter
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
--- OUTSIDE RECORDS SUMMARY | 2024-06-21 16:27 | XMS_ITS | Encounter Summary ---
Author Organization [employer] [facility] Address [address] [place] [address] 7 [place] [address] Care Team Providers Care Financial Analyst Name Role Phone Daly Juan Primary Care Provider [phone] Reason for Visit * Reason Comments Med Refill Encounter Details Date Type Department Care Team (Late st Contact Info) Description 08/06/2022 Refill [facility] [address] [place] [address] Daly Juan ANP [address] [place] [address] Multiple closed fractures of ribs of both sides with routine healing Social History Tobacco Use Types Packs/Day Years Used Date Smoking Tobacco: Never Passive Smoke Exposure: Never Smokeless Tobacco: Never Alcohol Use Standard Drinks/Week Comments Yes 0 (1 standard drink = 0.6 oz pur e alcohol) Depression Answer Date Recorded Patient Health Questionnaire-9 Score 7 05/29/2022 Depression Answer Date Recorded Patient Health Questionnaire-2 Score 3 05/29/2022 Sex and Gender Information Value Date Recorded Sex Assigned at Male 02/04/2022 10:20 AM EDT Legal Sex Male 10:20 AM EDT Gender Identity Male 02/04/2022 10:20 AM EDT Sexual Orientation Straight 02/04/2022 10 :20 AM EDT documented as of this encounter Plan of Treatment Upcoming Encounters Date Type Department Care Team (Late st Contact Info) Description 07/15/2024 1:00 PM EDT Office Visit [facility] OPTOMETRY [address] [place] [address] [place] OD [address] [place] [address] 09/07/2024 1:00 PM EDT Office Visit [facility] [address] [place] [address] Daly Juan ANP [address] [place] [address] documented as of this encounter Visit Diagnoses Diagnosis Multiple closed fractures of ribs of both sides with routine healing documented in this encounter Additional Health Concerns Assessment Noted Time PHQ-9 Depression Total Score: 7 05/29/19 23 3:56 PM EST documented as of this encounter Care Teams Financial Analyst Relationship Specialty Start Date End Date Daly Juan ANP [address] [place] [address] PCP - General Family Medicine 02/09/20 documented as of this encounter
--- OUTSIDE RECORDS SUMMARY | 2024-06-21 16:27 | XMS_ITS | Encounter Summary ---
Author Organization [employer] Address [address] [facility] 7t [place] [address] Care Team Providers Care Aircraft Powerplant Repairer Name Role Phone Daly Juan Primary Care Provider [phone] Reason for Visit * Reason Onset Date Comments September recall 06/08/2024 Encounter Details Date Type Department Care Team ([facility] st Contact Info) Description 06/08/[address] [facility] [address] [place], [place] [phone] Daly Juan ANP [address] [place] [address] September recall Social History Tobacco Use Types Packs/Day Years [...] AM EDT documented as of this encounter Miscellaneous Notes * Telephone Encounter - Julissa May MA - 06/08/2024 1:05 PM EST Telephone call to patient spoke to pt's mom to schedule the following recall: Visit type: Office visit extended Appointment notes: f/u dizziness 30 min per PCP. Patient agree to appointment on 09/07/24 at 1:00 PM with Yessica. documented in this encounter Plan of Treatment Upcoming Encounters Date Type Department Care Team (Late st Contact Info) Description 07/15/2024 1:00 PM EDT Office Visit [facility] OPTOMETRY [address] [place] [address] [place] OD [address] [place] [address] 09/07/2024 1:00 PM EDT Office Visit [facility] [address] [place] [address] Daly Juan ANP [address] [place] [address] documented as of this encounter Visit Diagnoses Not on filedocumented in this encounter Additional Health Concerns Assessment Noted Time PHQ-9 Depression Total Score: 14 025 1:41 PM EST documented as of this encounter Care Teams Aircraft Powerplant Repairer Relationship Specialty Start Date End Date Daly uJan ANP [address] [place] [address] PCP - General Family Medicine 02/09/20 documented as of this encounter
--- OUTSIDE RECORDS SUMMARY | 2024-06-21 16:27 | XMS_ITS | Encounter Summary ---
Author Organization [employer] Address [address] [facility] 7t [place] [address] Care Team Providers Care Manager Recruiting Name Role Phone Daly Juan ROBBY Primary Care Provider Encounter Details Date Type Department Care Team ([facility] st Contact Info) Description 06/18/2024 Population Health Risk Score [facility] (C3) Department [address] [place] [phone] Provider, Population Health Generic Social History Tobacco Use Types Packs/Day Years [...] Description 07/15/2024 1:00 PM EDT Office Visit [facility] OPTOMETRY [address] [place] [address] [place] OD [address] [place] [address] 09/07/2024 1:00 PM EDT Office Visit [facility] MED[facility] [address] [place] [address] Daly Juan ANP [address] [place] [address] documented as of this encounter Visit Diagnoses Not on filedocumented in this encounter Additional Health Concerns Assessment Noted Time PHQ-9 Depression Total Score: 14 025 1:41 PM EST documented as of this encounter Care Teams Manager Recruiting Relationship Specialty Start Date End Date Daly Juan ANP [address] [place] [address] PCP - General Family Medicine 02/09/20 documented as of this encounter
--- OUTSIDE RECORDS SUMMARY | 2024-06-21 16:27 | XMS_ITS | Encounter Summary ---
Author Organization [employer] Address [address] [place] [address] 7t [place] [address] Care Team Providers Care Modeling Manager Name Role Phone Daly Juan Primary Care Provider [phone] Reason for Visit * Reason Onset Date Comments Referral 04/10/2022 Encounter Details Date Type Department Care Team ([facility] st Contact Info) Description 04/10/2022 Telephone [facility] [address] [place], [place] [phone] Daly Juan ANP [address] [place] [address] Referral Social History Tobacco Use Types Packs/Day Years [...] Telephone Encounter - Oswaldo Clinton - 04/10/2022 11:12 AM EST Tc from mom requesting a referral for the eye vision center Please contact mom at [phone] documented in this encounter Plan of Treatment Upcoming Encounters Date Type Department Care Team (Late st Contact Info) Description 07/15/2024 1:00 PM EDT Office Visit [facility] OPTOMETRY [address] [place] [address] [place], OD [address] [place] [address] 09/07/2024 1:00 PM EDT Office Visit [facility] [address] [place] [address] Daly Juan ANP [address] [place] [address] documented as of this encounter Visit Diagnoses Not on filedocumented in this encounter Care Teams Modeling Manager Relationship Specialty Start Date End Date Daly Juan ANP [address] [place] [address] PCP - General Family Medicine 02/09/20 documented as of this encounter
== END ==
LOC: HO.CARD 13:59
PROVIDERS: PCP Nurse Practitioner Primary Care; Visit Provider Nurse Practitioner Primary Care
DX: R42 Dizziness and giddiness (principal)
CPT/HCPCS: 93306

== ENCOUNTER → 2024-06-21 14:04 | Outpatient (BNV) | payer MEDICAID, SELFPAY | PROVIDERS: PCP Nurse Practitioner Primary Care; Visit Provider Internal Medicine | DX: I36.1 Nonrheumatic tricuspid (valve) insufficiency (principal); R42 Dizziness and giddiness | CPT/HCPCS: 93306 ==

== ENCOUNTER 2024-08-18 14:00 | Outpatient (RCR) | payer MEDICAID, SELFPAY | END 2024-08-25 10:54 | disposition home or self-care (01) | LOC: HO.PT 14:00 | PROVIDERS: PCP Nurse Practitioner Primary Care; Visit Provider Nurse Practitioner Primary Care | DX: M25.511 Pain in right shoulder (principal); R26.81 Unsteadiness on feet; M54.50 Low back pain, unspecified; G89.29 Other chronic pain | CPT/HCPCS: 97110; 97112; 97162 ==

== ENCOUNTER 2024-09-07 11:43 | Emergency (ER) | payer MEDICAID, SELFPAY ==
[2024-09-07 11:57] VITALS: BP 103/68; PULSE 88; RESP 18; TEMP 36.1; O2SAT 98; BMI 29.0
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
[2024-09-07 12:28] LABS: MANUAL DIFF FLAG NO
[2024-09-07 12:31] LABS: Basophils Absolute Auto 0.1 X10*3/uL (0.0-0.2); Basophils Percent Auto 0.8 % (0-2); Eosinophils Absolute Auto 0.2 X10*3/uL (0.0-0.4); Hematocrit 45.9 % (42.0-52.0); Hemoglobin 15.8 g/dl (14.0-18.0); Imm Gran Abs Auto 0.02 X10*3/uL (0.00-0.03); Imm Gran Pct Auto 0.3 % (0.0-0.4); Lymphocytes Absolute Auto 0.8 X10*3/uL (1.2-4.9); Lymphocytes Percent Auto 12.2 % (20-40); Mean Corpuscular HGB Conc 34.4 g/dl (31.0-36.0); Mean Corpuscular Hemoglobin 29.5 pg (27.0-33.0); Mean Corpuscular Volume 85.6 fL (80.0-98.0); Mean Platelet Volume 9.1 fL (9.4-12.4); Monocytes Absolute Auto 0.9 X10*3/uL (0.1-1.2); Neutrophils Absolute Auto 4.6 x10*3/uL (2.0-8.3); Neutrophils Percent Auto 69.7 % (45-73); Platelet Count 211 X10*3/uL (160-400); Red Blood Count 5.36 X10*6/uL (4.60-5.80); Red Cell Distribution Width 14.2 % (11.0-16.0); White Blood Count 6.6 X10*3/uL (4.8-10.8)
[2024-09-07 12:48] LABS: Alanine Aminotransferase 30 U/L (0-40); Albumin Level 4.4 g/dL (3.5-5.0); Alkaline Phosphatase 109 U/L (39-117); Anion Gap 10 (12-20); Aspartate Amino Transferase 23 U/L (5-37); Bilirubin Total 0.3 mg/dL (0.0-1.0); Blood Urea Nitrogen 12 mg/dL (9-16); Calcium 9.3 mg/dL (8.4-10.2); Carbon Dioxide 24 mmol/L (22-29); Chloride 112 mmol/L (96-108); Creatinine Clr Calc Pharmacy 142.8; Estimated Glomerular Filt Rate > 60; Glucose Random 87 mg/dL (60-115); Lipase 16 U/L (8-78); Potassium 3.9 mmol/L (3.3-5.1); Sodium 142 mmol/L (135-145); Total Protein 7.2 g/dL (6.5-8.0)
[2024-09-07 13:56] LABS: Appearance Urine Clear; Color Urine Yellow; Glucose Urine UA Negative (Negative); Leukocyte Esterase Urine Negative (Negative); Nitrite Urine Negative (Negative); UMIC TRIGGER UACC YES; Urine Blood Trace (Negative); Urine Ketones Negative (Negative); Urine Protein Negative (Neg-Trace)
[2024-09-07 14:01] LABS: Bacteria Urine None Seen (None Seen); Hyaline Casts Urine 0-2 /LPF (0-2); RBC Urine 0-2 /HPF (0-2); Squamous Epithelial Cell Urine 0-2 /HPF (0-2); WBC Urine 0-5 /HPF (0-5)
== END 2024-09-07 18:06 | disposition left against medical advice (07) ==
PROVIDERS: Physician Assistant; Emergency Provider Emergency Medicine; PCP Nurse Practitioner Primary Care
DX: R10.9 Unspecified abdominal pain (principal); Z79.899 Other long term (current) drug therapy
CPT/HCPCS: 36415; 80053; 81001; 83690; 85025; 99282; 99283

== ENCOUNTER 2025-01-13 13:50 | Outpatient (REF) | payer MEDICAID, SELFPAY ==
[2025-01-13 16:35] LABS: Hematocrit 47.9 % (42.0-52.0); Hemoglobin 16.2 g/dl (14.0-18.0); Mean Corpuscular HGB Conc 33.8 g/dl (31.0-36.0); Mean Corpuscular Hemoglobin 29.2 pg (27.0-33.0); Mean Corpuscular Volume 86.5 fL (80.0-98.0); NRBC Abs Auto 0.000 X10*3/uL (0.0-0.012); NRBC Pct Auto 0.0 /100WBC (0.0-0.2); Platelet Count 328 X10*3/uL (160-400); Red Blood Count 5.54 X10*6/uL (4.60-5.80); White Blood Count 8.1 X10*3/uL (4.8-10.8)
[2025-01-13 17:17] LABS: Alanine Aminotransferase 44 U/L (0-40); Albumin Level 4.8 g/dL (3.5-5.0); Alkaline Phosphatase 112 U/L (39-117); Anion Gap 15 (12-20); Aspartate Amino Transferase 19 U/L (5-37); Blood Urea Nitrogen 11 mg/dL (9-16); Calcium 9.5 mg/dL (8.4-10.2); Carbon Dioxide 25 mmol/L (22-29); Chloride 107 mmol/L (96-108); Estimated Glomerular Filt Rate > 60; Potassium 3.7 mmol/L (3.3-5.1); Sodium 143 mmol/L (135-145); Total Protein 7.8 g/dL (6.5-8.0)
[2025-01-14 03:52] LABS: CT PCR Urine NOT DETECTED (Not Detect.); NG PCR Urine NOT DETECTED (Not Detect.)
[2025-01-14 08:45] LABS: HIV Num 1 0.05 S/CO (0.00-0.99); ~HepC Num1 0.07 S/CO (0.00-0.79); ~Hepatitis C Antibody Nonreactive (Nonreactive)
[2025-01-18 14:23] LABS: Metanephrine, Free 30 pg/mL (<=57); Normetanephrines, Free 75 pg/mL (<=148); Total Metanephrine, Free 105 pg/mL (<=205)
== END 2025-01-13 13:51 | disposition home or self-care (01) ==
LOC: HO.HHCL 13:50
PROVIDERS: Student in an Organized Health Care Education/Training Program; PCP Nurse Practitioner Primary Care; Visit Provider Nurse Practitioner Primary Care
DX: Z11.59 Encounter for screening for other viral diseases (principal); Z20.2 Contact with and (suspected) exposure to infections with a predominantly sexual mode of transmission; Z11.4 Encounter for screening for human immunodeficiency virus [HIV]; R00.2 Palpitations; R03.0 Elevated blood-pressure reading, without diagnosis of hypertension
CPT/HCPCS: 36415; 80053; 83036; 83835; 84443; 85027; 86592; 86803; 87389; 87491; 87591

== ENCOUNTER 2025-01-18 08:30 | Outpatient (REF) | payer MEDICAID, SELFPAY ==
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
--- OUTSIDE RECORDS SUMMARY | 2025-01-18 08:55 | XMS_ITS | Encounter Summary ---
Author Organization [employer] Address [address] [place] [id number] Care Team Providers Care Marble Carver Name Role Phone Daly Juan ROBBY Primary Care Provider [phone] Encounter Details Date Type Department Care Team (Latest Contact Info) Description 01/13/2025 Results Follow-Up [facility] [address] [place] [address] Toshia Perez MD [address] [place] [address] TSH with Reflex to Free T4, Comprehensive Metabolic Panel, CBC, Hemoglobin A1c Social History Tobacco Use Types Packs/Day Years [...] as of this encounter Miscellaneous Notes * Result Encounter Note - Toshia Valdez MD - 01/13/2025 8:15 PM EDT Mild elevated LFT , pd metanephrine result documented in this encounter Plan of Treatment Upcoming Encounters Date Type Department Care Team (Late st Contact Info) Description 03/28/2025 1:30 PM EST Office Visit [facility] [address] [place] [phone] Daly Juan ANP [address] [place] [address] documented as of this encounter Visit Diagnoses Not on filedocumented in this encounter Additional Health Concerns Assessment Noted Time PHQ-9 Depression Total Score: 14 025 1:41 PM EST documented as of this encounter Care Teams Marble Carver Relationship Specialty Start Date End Date Daly Juan ANP [address] [place] [phone] PCP - General Family Medicine 02/09/20 documented as of this encounter
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
--- OUTSIDE RECORDS SUMMARY | 2025-01-18 08:55 | XMS_ITS | Encounter Summary ---
Author Organization [employer] Address [address] [place] [address] [address] [place] [address] Care Team Providers Care Slot Tag Inserter Name Role Phone Daly Juan Primary Care Provider [phone] Reason for Visit * Reason Onset Date Comments status 04/10/2022 Encounter Details Date Type Department Care Team ([facility] st Contact Info) Description 04/10/2022 Telephone [facility] [address] [place] [address] Daly Juan ANP [address] [place] [address] status Social History Tobacco Use Types Packs/Day [...] Telephone Encounter - Oswaldo Clinton - 04/10/2022 11:09 AM EST Tc from mom requesting status on wheelchair and shower chair also toilet chair Please contact mom at [phone] documented in this encounter Plan of Treatment Upcoming Encounters Date Type Department Care Team (Late st Contact Info) Description 03/28/2025 1:30 PM EST Office Visit [facility] [address] [place] [address] Daly Juan ANP [address] [place] [address] documented as of this encounter Visit Diagnoses Not on filedocumented in this encounter Care Teams Slot Tag Inserter Relationship Specialty Start Date End Date Daly Juan ANP [address] [place] [phone] PCP - General Family Medicine 02/09/20 documented as of this encounter
--- OUTSIDE RECORDS SUMMARY | 2025-01-18 08:55 | XMS_ITS | Encounter Summary ---
Author Organization [employer] Address [address] [facility] [address] [place] [address] Care Team Providers Care Gas Line Installer Supervisor Name Role Phone Daly Juan Primary Care Provider [phone] Encounter Details Date Type Department Care Team (Latest Contact Info) Description 01/13/2025 Travel Social History Tobacco Use Types Packs/Day [...] Description 03/28/2025 1:30 PM EST Office Visit [facility] [address] [place] [phone] Daly Juan ANP [address] [place] [phone] documented as of this encounter Visit Diagnoses Not on filedocumented in this encounter Additional Health Concerns Assessment Noted Time PHQ-9 Depression Total Score: 14 025 1:41 PM EST documented as of this encounter Care Teams Gas Line Installer Supervisor Relationship Specialty Start Date End Date Daly Juan ANP [address] [place] [phone] PCP - General Family Medicine 02/09/20 documented as of this encounter
--- OUTSIDE RECORDS SUMMARY | 2025-01-18 08:55 | XMS_ITS | Encounter Summary ---
Author Organization [employer] Address [address] [facility] [address] [place] [address] Care Team Providers Care Ore Dryer Name Role Phone Daly Juan ROBBY Primary Care Provider [phone] Encounter Details Date Type Department Care Team ([facility] st Contact Info) Description 11/16/2024 Orders Only [facility] [address] [place] [address] Toshia Perez MD [address] [place] [address] Social History Tobacco Use Types Packs/Day Years [...] Description 03/28/2025 1:30 PM EST Office Visit [facility] [address] [place] [address] Daly Juan ANP [address] [place] [address] documented as of this encounter Visit Diagnoses Not on filedocumented in this encounter Additional Health Concerns Assessment Noted Time PHQ-9 Depression Total Score: 14 025 1:41 PM EST documented as of this encounter Care Teams Ore Dryer Relationship Specialty Start Date End Date Daly Juan ANP [address] [place] [phone] PCP - General Family Medicine 02/09/20 documented as of this encounter
--- OUTSIDE RECORDS SUMMARY | 2025-01-18 08:55 | XMS_ITS | Encounter Summary ---
Author Organization [employer] Address [address] [place] [address] Care Team Providers Care Open Hearth Furnace Operator Name Role Phone Daly Juan Primary Care Provider [phone] Reason for Visit * Reason Comments Med Refill Encounter Details Date Type Department Care Team (Late st Contact Info) Description 08/06/2022 Refill [facility] [address] [place] [phone] Daly Juan ANP [address] [place], [place] [phone] Multiple closed fractures of ribs of both [...] Description 03/28/2025 1:30 PM EST Office Visit [facility] [address] [place] [phone] Daly Juan ANP [address] [place] [address] documented as of this encounter Visit Diagnoses Diagnosis Multiple closed fractures of ribs of both sides with routine healing documented in this encounter Additional Health Concerns Assessment Noted Time PHQ-9 Depression Total Score: 7 05/29/19 23 3:56 PM EST documented as of this encounter Care Teams Open Hearth Furnace Operator Relationship Specialty Start Date End Date Daly Juan ANP [address] [place] [address] PCP - General Family Medicine 02/09/20 documented as of this encounter
--- OUTSIDE RECORDS SUMMARY | 2025-01-18 08:55 | XMS_ITS | Encounter Summary ---
Author Organization [employer] Address 75 [facility] 7 [place] [address] Care Team Providers Care Machine Tester Name Role Phone Daly Juan Primary Care Provider [phone] Encounter Details Date Type Department Care Team ([facility] st Contact Info) Description 01/17/2025 Results Follow-Up [facility] MEDICINE [address] [place] [address] Daly Juan, ANP 230 [place] [address] HIV-1/2 Antigen and Antibodies, Fourth Generation, with Reflexes, RPR (Monitor) with Reflex to Titer, Hepatitis C Antibody with Reflex to HCV, RNA, Quantitative, Real-Time PCR Social History Tobacco Use Types Packs/Day Years [...] Miscellaneous Notes * Result Encounter Note - ROBBY Mendez - 01/17/2025 10:27 AM EDT Hi Diony. All labs normal thus far. Please call our office if you have any questions. Por favor llame a la oficina si tiene preguntas. Take care, Cu??Daly kennedy EDUCATION FACULTY MEMBER documented in this encounter Plan of Treatment Upcoming Encounters Date Type Department Care Team ([facility] st Contact Info) Description 03/28/2025 1:30 PM EST Office Visit [facility] MEDICINE [address] [place] [address] Daly Juan ANP [address] [place] [address] documented as of this encounter Visit Diagnoses Not on filedocumented in this encounter Additional Health Concerns Assessment Noted Time PHQ-9 Depression Total Score: 14 06/04/ 025 1:41 PM EST documented as of this encounter Care Teams Machine Tester Relationship Specialty Start Date End Date Daly Juan ANP [address] [place] [phone] PCP - General Family Medicine 02/09/20 documented as of this encounter
--- OUTSIDE RECORDS SUMMARY | 2025-01-18 08:55 | XMS_ITS | Encounter Summary ---
Author Organization [employer] Address [address] [place] [address] 7 [place] [address] Care Team Providers Care Psychologist Educational Name Role Phone Daly Juan Primary Care Provider [phone] Reason for Visit * Reason Onset Date Comments Med Refill 04/10/2022 Encounter Details Date Type Department Care Team ([facility] st Contact Info) Description 04/10/2022 Refill [facility] MEDICINE [address] [place] [address] Daly Juan ANP 230 [place] [address] Other constipation; Sleeping difficulty Social History Tobacco [...] Description 03/28/2025 1:30 PM EST Office Visit [facility] MEDICINE [address] [place] [address] Daly Juan ANP 230 [place] [address] documented as of this encounter Visit Diagnoses Diagnosis Other constipation Sleeping difficulty Unspecified sleep disturbance documented in this encounter Care Teams Psychologist Educational Relationship Specialty Start Date End Date Daly Juan ANP [address] [place] [address] PCP - General Family Medicine 02/09/20 documented as of this encounter
--- OUTSIDE RECORDS SUMMARY | 2025-01-18 08:55 | XMS_ITS | Encounter Summary ---
Author Organization [employer] Address 75 [facility] 7t [place] [address] Care Team Providers Care Admissions Specialist Name Role Phone Daly Juan Primary Care Provider [phone] Encounter Details Date Type Department Care Team ([facility] st Contact Info) Description 01/13/2025 Orders Only [facility] MEDICINE [address] [place], [place] [phone] Daly Juan ANP 230 [place] [address] Social History Tobacco Use Types Packs/Day Years [...] Description 03/28/2025 1:30 PM EST Office Visit [facility] MEDICINE [address] [place], [place] [phone] Daly Juan, ANP 230 [place] [address] documented as of this encounter Procedures Procedure Name Priority Date/Time Associated Diagnosis Comments CHLAMYDIA/TRICHOMON /NEISSERIA GONORRHOEAE, PCR, URINE Routine 01/13/2025 1:40 PM EDT documented in this encounter Results * Chlamydia/Trichomonas/Neisseria gonorrhoeae, PCR, Urine (01/13/2025 1:40 PM EDT) CT PCR, Urine NOT DETECTED Not Detect. [facility] Comment:A not detected test result [...] NG PCR, Urine NOT DETECTED Not Detect. [facility] Comment:A not detected test result [...] 1:40 PM EDT 01/13/2025 7:10 PM EDT us Daly [facility] URINE ORDERABLES Final Resul t [facility] [address] [place] [phone] documented in this encounter Visit Diagnoses Not on filedocumented in this encounter Additional Health Concerns Assessment Noted Time PHQ-9 Depression Total Score: 14 06/04/2 025 1:41 PM EST documented as of this encounter Care Teams Admissions Specialist Relationship Specialty Start Date End Date Daly Juan ANP [address] [place] [address] PCP - General Family Medicine 02/09/20 documented as of this encounter
--- OUTSIDE RECORDS SUMMARY | 2025-01-18 08:55 | XMS_ITS | Encounter Summary ---
Author Organization [employer] Address 75 [facility] 7 [place] [address] Care Team Providers Care Side Stapler Name Role Phone Daly Juan Primary Care Provider [phone] Encounter Details Date Type Department Care Team ([facility] st Contact Info) Description 01/14/2025 Results Follow-Up [facility] MEDICINE [address] [place] [address] Daly Juan ANP [address] [place] [address] Chlamydia/Trichomona s/Neisseria gonorrhoeae, PCR, Urine Social History Tobacco Use Types Packs/Day Years [...] Description 03/28/2025 1:30 PM EST Office Visit [facility] MEDICINE [address] [place] [address] Daly Juan ANP [address] [place] [address] documented as of this encounter Visit Diagnoses Not on filedocumented in this encounter Additional Health Concerns Assessment Noted Time PHQ-9 Depression Total Score: 14 025 1:41 PM EST documented as of this encounter Care Teams Side Stapler Relationship Specialty Start Date End Date Daly Juan ANP [address] [place] [address] PCP - General Family Medicine 02/09/20 documented as of this encounter
--- OUTSIDE RECORDS SUMMARY | 2025-01-18 08:55 | XMS_ITS | Encounter Summary ---
Author Organization [employer] Address [address] [place] [address] 7 [place] [address] Care Team Providers Care Leading Firefighter Name Role Phone Daly Juan Primary Care Provider [phone] Reason for Visit * Reason Onset Date Comments Referral 04/10/2022 Encounter Details Date Type Department Care Team ([facility] st Contact Info) Description 04/10/2022 Telephone [facility] MEDICINE 230 [place] [address] Daly Juan ANP 230 [place] [address] Referral Social History Tobacco Use Types Packs/Day [...] [facility] center Please contact mom at [phone] documented in this encounter Plan of Treatment Upcoming Encounters Date Type Department Care Team (Late st Contact Info) Description 03/28/2025 1:30 PM EST Office Visit [facility] MEDICINE 230 [place] [address] Daly Juan ANP [address] [place] [address] documented as of this encounter Visit Diagnoses Not on filedocumented in this encounter Care Teams Leading Firefighter Relationship Specialty Start Date End Date Daly Juan ANP 230 [place] [address] PCP - General Family Medicine 02/09/20 documented as of this encounter
== END 2025-01-18 08:31 | disposition home or self-care (01) ==
LOC: HO.NEURO 08:30
PROVIDERS: PCP Nurse Practitioner Primary Care; Visit Provider Student in an Organized Health Care Education/Training Program
DX: R00.2 Palpitations (principal); R25.1 Tremor, unspecified
CPT/HCPCS: 95816

== ENCOUNTER → 2025-01-18 09:54 | Outpatient (BNV) | payer MEDICAID, SELFPAY | PROVIDERS: PCP Nurse Practitioner Primary Care; Visit Provider Psychiatry & Neurology Neurology | DX: R25.1 Tremor, unspecified (principal); Z87.820 Personal history of traumatic brain injury | CPT/HCPCS: 95816 ==

== ENCOUNTER 2025-02-07 12:47 | Outpatient (REF) | payer MEDICAID, SELFPAY ==
--- NOTE | 2025-02-07 | EMG_ITS ---
Chief complaint:?R20.0 Anesthesia of skin Reason for referral: Left leg numbness Referred by:?Toshia Valdez MD Procedure done: Left lower extremity NCS/EMG Left peroneal and tibial motor studies were performed with F responses. Left tibial H reflexes were obtained. Left superficial peroneal and sural sensory studies were performed an EMG needle examination was performed. Findings: No significant abnormality noted. Impression: This is an unremarkable study with no evidence of peripheral neuropathy or radiculopathy. Codin [id number] 1 extrremity MTDD
--- OUTSIDE RECORDS SUMMARY | 2025-02-07 16:14 | XMS_ITS | Encounter Summary ---
Author Organization [employer] Address [address] [place] [address] [address], [place] [address] Care Team Providers Care Shield Cleaner Name Role Phone Daly Juan Primary Care Provider [phone] Reason for Visit * Reason Onset Date Comments Referral 04/10/2022 Encounter Details Date Type Department Care Team ([facility] st Contact Info) Description 04/10/2022 Telephone [facility] MEDICINE [address] [place] [address] Daly Juan ANP [address] [place] [address] Referral Social History Tobacco Use Types Packs/Day [...] eye vision center Please contact mom at [phone] documented in this encounter Plan of Treatment Upcoming Encounters Date Type Department Care Team (Late st Contact Info) Description 03/28/2025 1:30 PM EST Office Visit [facility] MEDICINE [address] [place] [address] Daly Juan ANP 230 [place] [address] documented as of this encounter Visit Diagnoses Not on filedocumented in this encounter Care Teams Shield Cleaner Relationship Specialty Start Date End Date Daly Juan ANP 230 [place] [address] PCP - General Family Medicine 02/09/20 documented as of this encounter
--- OUTSIDE RECORDS SUMMARY | 2025-02-07 16:14 | XMS_ITS | Encounter Summary ---
Author Organization [employer] Address [address] [place] [address] [address] [address] Care Team Providers Care Research Development Manager Name Role Phone Daly Juan Primary Care Provider [phone] Reason for Visit * Reason Onset Date Comments status 04/10/2022 Encounter Details Date Type Department Care Team ([facility] st Contact Info) Description 04/10/[address] [facility] MEDICINE 230 [place] [address] Daly Juan ANP 230 [place] [address] status Social History Tobacco Use Types Packs/Day [...] also toilet chair Please contact mom at [phone] documented in this encounter Plan of Treatment Upcoming Encounters Date Type Department Care Team (Late st Contact Info) Description 03/28/2025 1:30 PM EST Office Visit [facility] MEDICINE 230 [place] [address] Daly Juan ANP 230 [place] [address] documented as of this encounter Visit Diagnoses Not on filedocumented in this encounter Care Teams Research Development Manager Relationship Specialty Start Date End Date Daly Juan ANP [address] [place] [address] PCP - General Family Medicine 02/09/20 documented as of this encounter
--- OUTSIDE RECORDS SUMMARY | 2025-02-07 16:14 | XMS_ITS | Encounter Summary ---
Author Organization [employer] Address 75 [facility] 7 [place] [address] Care Team Providers Care Investigation Lieutenant Name Role Phone Daly Juan ROBBY Primary Care Provider [phone] Encounter Details Date Type Department Care Team ([facility] st Contact Info) Description 11/16/2024 Orders Only [facility] MEDICINE 230 [place] [address] Toshia Perez MD 230 [place] [address] Social History Tobacco Use Types Packs/Day Years [...] Description 03/28/2025 1:30 PM EST Office Visit [facility] MEDICINE [address] [place] [address] Daly Juan ANP 230 [place] [address] documented as of this encounter Visit Diagnoses Not on filedocumented in this encounter Additional Health Concerns Assessment Noted Time PHQ-9 Depression Total Score: 14 025 1:41 PM EST documented as of this encounter Care Teams Investigation Lieutenant Relationship Specialty Start Date End Date Daly Juan ANP [address] [place] [address] PCP - General Family Medicine 02/09/20 documented as of this encounter
--- OUTSIDE RECORDS SUMMARY | 2025-02-07 16:14 | XMS_ITS | Encounter Summary ---
Author Organization [employer] Address [address] [place] [address] 7 [place] [address] Care Team Providers Care Cold Type Artist Name Role Phone Daly Juan Primary Care Provider [phone] Reason for Visit * Reason Onset Date Comments Med Refill 04/10/2022 Encounter Details Date Type Department Care Team (Late st Contact Info) Description 04/10/2022 Refill [facility] MEDICINE 230 [place] [address] Daly Juan ANP 230 [place] [address] Other constipation; Sleeping difficulty Social History Tobacco [...] 1:30 PM EST Office Visit [facility] MEDICINE 230 [place] [address] Daly Juan ANP 230 [place] [address] documented as of this encounter Visit Diagnoses Diagnosis Other constipation Sleeping difficulty Unspecified sleep disturbance documented in this encounter Care Teams Cold Type Artist Relationship Specialty Start Date End Date Daly Juan ANP [address] [place] [address] PCP - General Family Medicine 02/09/20 documented as of this encounter
--- OUTSIDE RECORDS SUMMARY | 2025-02-07 16:14 | XMS_ITS | Encounter Summary ---
Author Organization [employer] Address 75 [facility] 7 [place] [address] Care Team Providers Care Concrete Paving Supervisor Name Role Phone Daly Juan Primary Care Provider [phone] Encounter Details Date Type Department Care Team ([facility] st Contact Info) Description 01/17/2025 Results Follow-Up [facility] MEDICINE [address] [place] [address] Daly Juan, ANP 230 [place] [address] HIV-1/2 Antigen and Antibodies, Fourth Generation, with [...] si tiene preguntas. Take care, Cu??Daly kennedy MENTAL RETARDATION NURSE documented in this encounter Plan of Treatment Upcoming Encounters Date Type Department Care Team ([facility] st Contact Info) Description 03/28/2025 1:30 PM EST Office Visit [facility] MEDICINE [address] [place] [address] Daly Juan ANP [address] [place] [address] documented as of this encounter Visit Diagnoses Not on filedocumented in this encounter Additional Health Concerns Assessment Noted Time PHQ-9 Depression Total Score: 14 06/04/ 025 1:41 PM EST documented as of this encounter Care Teams Concrete Paving Supervisor Relationship Specialty Start Date End Date Daly Juan ANP [address] [place] [address] PCP - General Family Medicine 02/09/20 documented as of this encounter
--- OUTSIDE RECORDS SUMMARY | 2025-02-07 16:14 | XMS_ITS | Encounter Summary ---
Author Organization [employer] Address 75 [facility] 7 [place] [address] Care Team Providers Care Acid Polymerization Operator Name Role Phone Daly Juan Primary Care Provider Encounter Details Date Type Department Care Team ([facility] st Contact Info) Description 01/14/2025 Results Follow-Up [facility] MEDICINE 230 [place] [address] Daly Juan ANP [address] [place] [address] Chlamydia/Trichomona s/Neisseria gonorrhoeae, PCR, Urine Social History [...] Description 03/28/2025 1:30 PM EST Office Visit [facility] MEDICINE [address] [place] [address] Daly Juan ANP [address] [place] [address] documented as of this encounter Visit Diagnoses Not on filedocumented in this encounter Additional Health Concerns Assessment Noted Time PHQ-9 Depression Total Score: 14 025 1:41 PM EST documented as of this encounter Care Teams Acid Polymerization Operator Relationship Specialty Start Date End Date Daly Juan ANP [address] [place] [address] PCP - General Family Medicine 02/09/20 documented as of this encounter
--- OUTSIDE RECORDS SUMMARY | 2025-02-07 16:14 | XMS_ITS | Encounter Summary ---
Author Organization [employer] Address [address] [place] [address] Care Team Providers Care Adoption Social Worker Name Role Phone Daly Juan Primary Care Provider [phone] Reason for Visit * Reason Comments Med Refill Encounter Details Date Type Department Care Team (Late st Contact Info) Description 08/06/2022 Refill [facility] MEDICINE [address] [place] [phone] Daly Juan ANP [address] [place], [place] [phone] Multiple closed fractures of ribs of both [...] Description 03/28/2025 1:30 PM EST Office Visit [facility] MEDICINE [address] [place] [phone] Daly Juan ANP [address] [place] [address] documented as of this encounter Visit Diagnoses Diagnosis Multiple closed fractures of ribs of both sides with routine healing documented in this encounter Additional Health Concerns Assessment Noted Time PHQ-9 Depression Total Score: 7 05/29/19 23 3:56 PM EST documented as of this encounter Care Teams Adoption Social Worker Relationship Specialty Start Date End Date Daly Juan ANP [address] [place] [address] PCP - General Family Medicine 02/09/20 documented as of this encounter
--- OUTSIDE RECORDS SUMMARY | 2025-02-07 16:14 | XMS_ITS | Clinical Summary ---
Author Organization [employer] Address [address] [facility] [address] [place] [address] Care Team Providers Care Alterations Workroom Clerk Name Role Phone Daly Juan ROBBY Primary Care Provider [phone] Allergies No known active allergies Medications * This document contains information received from the source organization and may not represent a complete record from that organization. cholecalciferol (Vitamin D-3) 1.25 MG (79332 UT) capsule Take 1 capsule by mouth 1 (one) time per week. 03/13/20 20 Active albuterol 108 (90 Base) MCG/ACT inhalerIndicatio ns:Mild intermittent asthma without complication Inhale 2 puffs every 4 (four) hours if needed for wheezing or shortness of breath. 18 g 1 03/29/20 22 Active doxepin (SINEquan) 50 MG capsule Take 50 mg by mouth at bedtime. Active sertraline (Zoloft) 50 MG tablet 07/08/19 25 Active clonazePAM (KlonoPIN) 1 MG tablet Take 1 mg by mouth 2 times daily. Active Blood Pressure kitIndications:E levated blood pressure reading 1 Device Once per day. 1 kit 10/16/19 25 Active Acetaminophen Extra Strength 500 MG tabletIndication s:Chronic midline low back pain without sciatica TAKE 2 TABLETS BY MOUTH EVERY 8 HOURS NEEDED OR TAKE 1 TABLET BY MOUTH EVERY SIX HOURS DIRECTED 120 tablet 2 01/29/20 25 Active Acetaminophen Extra Strength 500 MG tabletIndication s:Chronic midline low back pain without sciatica TAKE 2 TABLETS BY MOUTH EVERY 8 HOURS NEEDED OR TAKE 1 TABLET BY MOUTH EVERY SIX HOURS DIRECTED 120 tablet 2 08 025 Discontinued Active Problems Problem Noted Date Diagnosed Date [...] not neurologic and sp will contact a finance business partner and [employer] to eval if symptoms has another explanation. [...] Encounters Date Type Department Care Team Description 01/28/2025 Refill [facility] [address] [place] [address] Daly Juan ANP Chronic midline low back pain without sciatica 01/26/[address] [address] Fior Eddy, JOHNNY Results 01/17/2025 Results Follow-Up [address] [address] Daly Juan ANP HIV-1/2 Antigen and Antibodies, Fourth Generation, with Reflexes, RPR (Monitor) with Reflex to Titer, Hepatitis C Antibody with Reflex to HCV, RNA, Quantitative, Real-Time PCR 01/14/2025 Results Follow-Up [address] [address] Daly Juan ANP Chlamydia/Trichomonas /Neisseria gonorrhoeae, PCR, Urine 01/13/2025 1:00 PM EDT Office Visit [address] [address] Daly Juan ANP Encounter for immunization (Primary Dx); Routine screening for STI (sexually transmitted infection); Traumatic brain injury with loss of consciousness, sequela; Anxiety; Labile mood; Brain fog 01/13/2025 Orders Only [address] [address] Daly Juan ANP 01/13/2025 Results Follow-Up [facility] [address] [place] [address] Toshia Perez MD TSH with Reflex to Free T4, Comprehensive Metabolic Panel, CBC, Additional followed-up results: 2 01/13/2025 Travel 01/11/2025 Telephone [facility] [address] [place], [place] [phone] Daly Juan ANP chart prep 01/06/2025 Travel 11/24/2024 Refill [facility] [address] [place], [place] [phone] Daly Juan ANP Chronic midline low back pain without sciatica 11/16/2024 Orders Only [facility] [address] [place] [address] Toshia Perez MD 11/16/2024 Orders Only [facility] [address] [place], [place] [phone] Toshia Perez MD Left leg numbness (Primary Dx) 11/16/2024 Telephone [facility] [address] [place], [place] [phone] Toshia Perez MD EEG ORDER from Last 3 Months Immunizations Immunization Administration [...] Description 03/28/2025 1:30 PM EST Office Visit [facility] [address] [place] [address] Daly Juan, ANP [address] [place] [address] Health Maintenance Due Date Last Done Comments Family Planning (PISQ) 2017 Meningococcal B Vaccine (1 of 2 - Standard) 2018 Pneumococcal Vaccine: Pediatrics (0 to 5 Years) and At-Risk Patients (6 to 49) Years (1 of 2 - PCV) 2021 Depression Monitoring 12/02/2024 06/04/2024, 025 COVID-19 Vaccine ( season) 2024 05/03/2022, 09/20/2020 Alcohol/Substance Use Screening 06/04/2025 06/04/2024 Chlamydia and Gonorrhea Screening 01/13/2026 01/13/2025, 01/15/2024, 03/08/2020 Disability Screening 01/13/2026 01/13/2025 SDOH Screening 01/13/2026 [...] Procedure Name Priority Date/Time Associated Diagnosis Comments NERVE CONDUCTION TEST Routine 01/18/2025 Left leg numbness HEPATITIS C AB W/REFL TO HCV RNA, QN, PCR Routine 01/13/2025 1:56 PM EDT Routine screening for STI (sexually transmitted infection) RPR (MONITOR) W/REFL TITER Routine 01/13/2025 1:56 PM EDT Routine screening for STI (sexually transmitted infection) HIV 1/2 ANTIGEN/ANTIBODY, FOURTH GENERATION W/RFL Routine 01/13/2025 1:56 PM EDT Routine screening for STI (sexually transmitted infection) HEMOGLOBIN A1C Routine 01/13/2025 1:56 PM EDT Palpitations METANEPHRINES, FRACT, FREE, LC/MS/MS, PLASMA Routine 01/13/2025 1:56 PM EDT Palpitations Elevated blood pressure reading CBC Routine 01/13/2025 1:56 PM EDT Palpitations Elevated blood pressure reading COMPREHENSIVE METABOLIC PANEL Routine 01/13/2025 1:56 PM EDT Palpitations Elevated blood pressure reading TSH W/REFLEX TO FT4 Routine 01/13/2025 1 :56 PM EDT Palpitations Elevated blood pressure reading CHLAMYDIA/TRICHOMONAS/ NEISSERIA GONORRHOEAE, PCR, URINE Routine 01/13/2025 1:40 PM EDT from Last 3 Months Results * Nerve conduction test (01/18/2025) Toshia Valdez MD NEUROLOGY ORDERAB LES Final Result * Metanephrines, Fractionated, Free, LC/MS/MS, Plasma (01/13/2025 1:56 PM EDT) Metanephrine, Free 30 <=57 pg/mL [facility] Comment:This test was develo ped and its analytical performancecharacteristics have been determined by [employer] [place], [place]. It hasnot been cleared or approved by the U.S. Food and DrugAdministration. This assay has been validated pursuantto the CLIA regulations and is used for clinicalpurposes. Normetanephrine, Free 75 <=148 pg/mL [facility] Comment:This test was develo ped and its analytical performancecharacteristics have been determined by [employer] [place]. It hasnot been cleared or approved by the U.S. Food and DrugAdministration. This assay has been validated pursuantto the CLIA regulations and is used for clinicalpurposes. Total, Free (MN+NMN) 105 <=205 pg/mL [facility] Comment: For additional information, please refer [email or web address](This link is being provided for informational/educatioinformational/educational purposes only.)Elevations >4-fold upper reference range: stronglysuggestive of a pheochromocytoma(1).Elevations >1- 4-fold upper reference range:significant but not diagnostic, may be due tomedications or stress. Suggest running 24 hr urinefractionated metanephrines and/or serum Chromagranin Afor confirmation.Reference:(1)Nolan Augustin et al, Plasma Chromogranin Aor Urine Fractionated Metanephrines Follow-Up TestingImproves the Diagnostic Accuracy of Plasma FractionatedMetanephrines for Pheochromocytoma. The Journal ofClinical Endocrinology # Metabolism 93(1), 91-95, 2007.This test was developed and its analytical performancecharacteristics have been determined by [employer] [place], [place]. It hasnot been cleared or approved by the U.S. Food and DrugAdministration. This assay has been validated pursuantto the CLIA regulations and is used for clinicalpurposes.THIS TEST WAS PERFORMED AT:[employer]/[facility] [place] [address]YAZWLWXRALPH THOMAS MD,PHD Blood Venous blood specimen / Unknown 01/13/2025 1:56 PM EDT 01/13/2025 4:14 PM EDT us Toshia Valdez MD LAB BLOOD ORDERAB LES Final Result [facility] [address] [place] [address] [phone] * TSH with Reflex to Free T4 (01/13/2025 1:56 PM EDT) TSH reflex Free T4 0.77 0.32 - 4.0 uIU/mL [facility] Blood 01/13/2025 1:56 PM EDT 01/13/2025 4:14 PM EDT Toshia Valdez MD LAB BLOOD ORDERAB LES Final Result Performing Organization Address [facility]/ZIP Co de Phone Number [facility] [address] [place] [phone] * Hepatitis C Antibody with Reflex to HCV, RNA, Quantitative, Real-Time PCR (01/13/2025 1:56 PM EDT) Hepatitis C Antibody Nonreactive Nonreactive [facility] Comment:Antibodies to HCV no t detected; does not exclude early acuteHCV infection. Blood Venous blood specimen / Unknown 01/13/2025 1:56 PM EDT 01/13/2025 4:14 PM EDT Daly BUSTAMANTE LAB BLOOD ORDERABLES Final Resul t Performing Organization Address [facility] Co de Phone Number [facility] [address] [place] [phone] * RPR (Monitor) with Reflex to??Titer (01/13/2025 1:56 PM EDT) RPR (Monitor) w/Refl Titer NON-REACTI VE NON-REACT PABLITO [facility] Comment:THIS TEST WAS PERFOR MED AT:[employer] [place] [phone] CALLAHAN MD Rapid Plasma Reagin Ab Titer TNP [facility] Blood Venous blood specimen / Unknown 01/13/2025 1:56 PM EDT 01/13/2025 4:14 PM EDT Daly Juan ANP LAB BLOOD ORDERABLES Final Resul t Performing Organization Address [facility] Co de Phone Number [facility] [address] [place] [phone] * HIV-1/2 Antigen and Antibodies, Fourth Generation, with Reflexes (01/13/2025 1:56 PM EDT) [facility] HIV AB/AG Nonreactive Nonreactive [facility] Comment:HIV-1 p24 Ag and/or HIV-1/HIV-2 Ab not detected.A test result that is nonreactive does not exclude thepossibility of exposure to or infection with HIV-1 and/orHIV-2. Nonreactive results in this assay for individualswith prior exposure to HIV-1 and/or HIV-2 may be due toantigen and antibody levels that are below the limit ofdetection of this assay.The [employer] HIV Ag/Ab Combo assay result andsupplemental assay results should be interpreted inconjunction with the patient's clinical presentation,history and other laboratory results. If the results areinconsistent with clinical evidence, additional testing issuggested to confirm the result. Blood Venous blood specimen / Unknown 01/13/2025 1:56 PM EDT 01/13/2025 4:14 PM EDT Daly Juan [facility] LAB BLOOD ORDERABLES Final Resul t [facility] [address] [place] [phone] [phone] * CBC (01/13/2025 1:56 PM EDT) [facility] White Blood Count 8.1 4.8 - 10.8 X10*3/uL [facility] Red Blood Count 5.54 4.60 - 5.80 X10*6/uL [facility] Hemoglobin 16.2 14.0 - 18.0 g/dl [facility] Hematocrit 47.9 42.0 - 52.0 % [facility] Mean Corpuscular Volume 86.5 80.0 - 98.0 fL [facility] Mean Corpuscular Hemoglobin 29.2 27.0 - 33.0 pg [facility] Mean Corpuscular HGB Conc 33.8 31.0 - 36.0 g/dl [facility] Red Cell Distribution Width 14.0 11.0 - 16.0 % [facility] Platelet Count 328 160 - 400 X10*3/uL [facility] Mean Platelet Volume 9.7 9.4 - 12.4 fL [facility] NRBC Pct Auto 0.0 0.0 - 0.2 /100WBC [facility] NRBC Abs Auto 0.000 0.0 - 0.012 X10*3/uL [facility] Blood Venous blood specimen / Unknown 01/13/2025 1:56 PM EDT 01/13/2025 4:14 PM EDT Toshia Valdez MD LAB BLOOD ORDERAB LES Final Result Performing Organization Address [facility] Co de Phone Number [facility] [address] [place] [phone] * Hemoglobin A1c (01/13/2025 1:56 PM EDT) Hemoglobin A1c 5.2 <6.0 % [facility] Comment:Hemoglobin A1C Refer ence Range Adults: 4.8 - 6.0 % Non diabetic: < 6.0 % Goal: < 7.0 %Additional Action Suggested: > 8.0 %Note: Hemoglobin A1c results are invalid for patients with abnormal amounts of HbF. Blood transfusions may impact the HbA1c concentration in the patient sample. Estimated Average Glucose 103 mg/dL [facility] Comment:eAG = Estimated ave rage glucose which is %A1C expressed asaverage glucose, using the formula of the D8M-NjngmilIjxjalj Glucose study (ADAG), Diabetes Care, Vol.31,#8,Nov. 2007 Blood Venous blood specimen / Unknown 01/13/2025 1:56 PM EDT 01/13/2025 4:14 PM EDT Toshia Valdez MD LAB BLOOD ORDERAB LES Final Result Performing Organization Address City/[facility] Co de Phone Number [facility] [address] [place] [phone] [phone] * (ABNORMAL) Comprehensive Metabolic Panel (01/13/2025 1:56 PM EDT) Sodium 143 135 - 145 mmol/L [facility] Potassium 3.7 3.3 - 5.1 mmol/L [facility] Chloride 107 96 - 108 mmol/L [facility] Carbon Dioxide 25 22 - 29 mmol/L [facility] Anion Gap 15 12 - 20 [facility] Urea Nitrogen (BUN) 11 9 - 16 mg/dL [facility] Creatinine, Serum 0.88 0.5 - 1.4 mg/dL [facility] Estimated Glomerular Filt Rate >60 [facility] Comment:Chronic Kidney Disea se: Estimated GFR < 60 mL/min/1.72e2Oofzcd Kidney Disease: Estimated GFR < 15 mL/min/1.73m2 Glucose 66 60 - 115 mg/dL [facility] Calcium 9.5 8.4 - 10.2 mg/dL [facility] Bilirubin, Total 0.3 0.0 - 1.0 mg/dL [facility] Aspartate Amino Transferase 19 5 - 37 U/L [facility] Alanine Aminotransferase 44(H) 0 - 40 U/L [facility] Total Protein 7.8 6.5 - 8.0 g/dL [facility] Albumin Level 4.8 3.5 - 5.0 g/dL [facility] Alkaline Phosphatase 112 39 - 117 U/L [facility] Blood Venous blood specimen / Unknown 01/13/2025 1:56 PM EDT 01/13/2025 4:14 PM EDT us Toshia Valdez MD LAB BLOOD ORDERAB LES Final Result [facility] [address] [place] [phone] [phone] * Chlamydia/Trichomonas/Neisseria gonorrhoeae, PCR, Urine (01/13/2025 1:40 PM EDT) CT PCR, Urine NOT DETECTED Not Detect. [facility] Comment:A not detected test result does [...] NG PCR, Urine NOT DETECTED Not Detect. [facility] Comment:A not detected test result does [...] to adverse medical, social or psychologicalconsequences. 01/13/2025 1:4 0 PM EDT 01/13/2025 7:10 PM EDT [facility] LAB URINE ORDERABLES Final Resul t [facility] [address] [place] [phone] [phone] from Last 3 Months Insurance [facility] C3 Care Teams Alterations Workroom Clerk Relationship Specialty Start Date End Date Daly Juan ANP [address] [place] [phone] PCP - General Family Medicine 02/09/20
== END 2025-02-07 12:48 | disposition home or self-care (01) ==
LOC: HO.NEURO 12:47
PROVIDERS: PCP Student in an Organized Health Care Education/Training Program; Visit Provider Student in an Organized Health Care Education/Training Program
DX: R20.0 Anesthesia of skin (principal)
CPT/HCPCS: 95886; 95910

== ENCOUNTER → 2025-02-07 13:05 | Outpatient (BNV) | payer MEDICAID, SELFPAY | PROVIDERS: PCP Student in an Organized Health Care Education/Training Program; Visit Provider Psychiatry & Neurology Neurology | DX: R20.0 Anesthesia of skin (principal) | CPT/HCPCS: 95886; 95910 ==